=== PATIENT | female | born 1945 | race African-American/Black ===

== ENCOUNTER 2017-02-08 09:50 | Inpatient (IN) | payer MEDICARE, OTHER ==
[~2017-02-08] VITALS: Ht 172.7 cm; Wt 74.4 kg
[2017-02-08] VITALS (18 sets, daily range): BP systolic 110–146; BP diastolic 42–80
[~2017-02-08 09:50] MED LIST: ALEN70TA3 PO; AMIT10TA PO; ASPI325T4 PO; BUDE10.22 IH; CALC500T PO; CARV12.52 PO; CARV25TA PO; CLOP75TA PO; CLOP75TA27 PO; CRESTOR10 MG PO; CRESTOR40 MG PO; DICL100G7 TP; DULO20CA PO; ESTR30CR VG; HYDR-2666 PO; HYDR-2678 PO; LANS30CA17 PO; LISI5TAB PO; METF500T PO; NIAC500T PO; OXYC10TA PO; PRAS10TA9 PO; PROAIR HFA8.5 GM IH; RANI150T2 PO
[2017-02-08] MEDS ORDERED: HEPARIN for IV BOLUS 10,000 UNIT/10 ML VIAL. ONE ×2 (09:57→10:18)
[2017-02-08] MEDS ORDERED: LIDOCAINE 2% 20 ML VIAL. ONE (09:58)
[2017-02-08] MEDS ORDERED: IODIXANOL 320 MG/ML 100 ML VIAL. ONE (09:59)
[2017-02-08] MEDS ORDERED: HEPARIN for IV BOLUS 10,000 UNIT/10 ML VIAL. IV PRN (10:00)
[2017-02-08] MEDS ORDERED: ONDANSETRON PF 4 MG/2 ML VIAL. IV PRN (10:00)
[2017-02-08] MEDS ORDERED: HEPARIN for IV BOLUS 10,000 UNIT/10 ML VIAL. IV ONE ×2 (10:00→10:15)
[2017-02-08] MEDS ORDERED: ACETAMINOPHEN 325 MG TABLET. PO PRN (10:00)
[2017-02-08] MEDS ORDERED: HEPARIN 25,000UTS/500ML PREMIX 500 ML IV PRN (10:00)
[2017-02-08] MEDS ORDERED: fentaNYL PF VIAL 100 MCG/2 ML VIAL ONE (10:05)
[2017-02-08] MEDS ORDERED: MIDAZOLAM HCL/PF 2 MG/2 ML VIAL. ONE (10:05)
[2017-02-08] MEDS ORDERED: LIDOCAINE 2% 20 ML VIAL. IJ ONE (10:15)
[2017-02-08] MEDS ORDERED: fentaNYL PF VIAL 100 MCG/2 ML VIAL IV ONE (10:15)
[2017-02-08] MEDS ORDERED: IODIXANOL 320 MG/ML 100 ML VIAL. IV ONE (10:15)
[2017-02-08] MEDS ORDERED: TIROFIBAN 5MG -0.9% NS 0 ML IV ONE (10:15)
[2017-02-08] MEDS ORDERED: TIROFIBAN 12.5MG -0.9% NS 250 ML IV PRN ×2 (10:15→11:30)
[2017-02-08] MEDS ORDERED: MIDAZOLAM HCL/PF 2 MG/2 ML VIAL. IV ONE (10:15)
[2017-02-08 10:17] LABS: BASO # 0.1 x10^3/uL (0.0-0.2); BASO % 2 % (0-3); EOS % 3 % (0-3); HEMATOCRIT 28.3 % (36.0-47.0); HEMOGLOBIN 9.6 g/dL (12.0-15.5); LYMPH # 1.9 x10^3/uL (1.0-4.8); LYMPH % 38 % (24-48); MEAN CORPUSCULAR HEMOGLOBIN 29 pg (25-35); MEAN CORPUSCULAR HGB CONC 34 g/dL (31-37); MEAN CORPUSCULAR VOLUME 87 fL (79-100); MONO % 13 % (0-9); NEUT % 45 % (31-73); PLATELET COUNT 362 x10^3/uL (140-400); RED BLOOD COUNT 3.26 x10^6/uL (3.50-5.40); RED CELL DISTRIBUTION WIDTH 15.2 % (11.5-14.5); WHITE BLOOD COUNT 5.2 x10^3/uL (4.0-11.0)
--- NOTE | 2017-02-08 10:17 | ACF ---
Admission Forms Criteria MYOCARDIAL INFARCTION Clinical Indications for Admission to Inpatient Care (Place 'X' for any and all applicable criteria): Admission is indicated for 1 or more of the following (1)(2)(3)(4): [X]I. Acute NJ [ ]II. Contraindications and/or Inappropriate clinical situations for Observational Care in patients with Myocardial Infarction, when ANY ONE of the following is required: [ ]a) Patient with High risk of cardiac embolism (e.g, patients with previous cardiac embolism, LVEF < 40%, age >75 and patients with prosthetic valve) 18 [ ]b) Patient with Moderate risk including DM patient, CAD and patient aged 65-75 18 [ ]c) Patient with any change in cardiac biomarker especially troponin should be managed as high risk in an inpatient setting 19 [ ]d) Physician judgement irrespective of ECG and other diagnostic findings 20 [ ]III.General contraindications and/or Inappropriate clinical situations for Observational Care in patients with Myocardial Infarction, when ANY ONE of the following is required: [ ]a) Prediction of prolongation of LOS based on ANY ONE of the following may be considered as a contraindication for observational care 2, 3, 4, 5, 6, 7, 8, 9, 10, 11 [ ]i) Age > 65 yrs. [ ]ii) Patient arriving by ambulance [ ]iii) Patient with high acuity [ ]iv) Patient requiring vital sign monitoring [ ]v) Patient on IV medication [ ]b) Systolic blood pressures greater than or equal to 180mmHg 3,12 [ ]c) Patient with altered mental status including delirium and other alteration of consciousness, (3) [ ]d) Patient whose discharge disposition will be to a fdc home or rehabilitation home should not be managed in Emergency Department Observation Unit. CMS rule requires 3 days hospital stay before such placement. 3,13 [ ]e) Patient with failure to thrive due to broad array of etiologies 3 ,16,17 [ ]f) Inability to ambulate 3,14 Extended stay beyond goal length of stay may be needed for (1)(18)(20)(24)(25): [ ]a) Hemodynamic instability, persisting symptoms after intensive medical management, or recurring severe, prolonged symptoms [ ]b) Intravascular procedural complications such as acute vessel closure, stent thrombosis, stent malposition, or vessel dissection (26)(27)(28) [ ]c) Extravascular procedural complications such as retroperitoneal hematoma , pericardial effusion, or cardiac tamponade [ ]d) Entry site complications causing bleeding, hematoma or distal ischemia and requiring ongoing monitoring, surgical repair or surgical thrombectomy. Dangerous arrhythmia [ ]e) Complicated percutaneous coronary intervention (e.g., unsuccessful percutaneous coronary intervention or percutaneous coronary intervention of non- [place] vessel) [ ]f) Urgent or emergent surgery for complications of NJ (e.g., ventricular rupture, valvular insufficiency) [ ]g) Surgical revascularization via coronary artery bypass graft [ ]h) Heart failure (e.g., pulmonary edema) [ ]i) Unstable pulmonary comorbidities, including COPD or pneumonia (31) [ ]j) Acute renal failure The original [employer] content created by [employer] has been revised. The portions of the content which have been revised are identified through the use of italic text or in bold, and [facility] [employer] has neither reviewed nor approved the modified material. All other unmodified content is copyright [facility] [employer] Please see references footnoted in the original [facility] [employer] edition 2016 Admission Criteria Met?: Yes MATT REVELES February 08, 2017 10:17
[2017-02-08] MEDS ORDERED: TIROFIBAN 5MG -0.9% NS 100 ML IV ONE (10:18)
[2017-02-08 10:23] LABS: CALCIUM 8.6 mg/dL (8.5-10.1); CREATININE 0.8 mg/dL (0.6-1.0); GFR 86.1; POTASSIUM 3.3 mmol/L (3.5-5.1)
[2017-02-08 10:28] LABS: ALBUMIN 3.1 g/dL (3.4-5.0); ALBUMIN/GLOBULIN RATIO 0.8 (1.0-1.7); TOTAL BILIRUBIN 0.3 mg/dL (0.2-1.0); TOTAL PROTEIN 6.9 g/dL (6.4-8.2)
[2017-02-08 10:30] LABS: INR 1.1 (0.8-1.1); PROTHROMBIN TIME PATIENT 13.6 SEC (11.7-14.0)
[2017-02-08] MEDS ORDERED: CONTRAST GIVEN MC PRN (10:45)
--- NOTE | 2017-02-08 10:53 | EKG ---
[facility] [address] [place] [address] Test Date: 2017-02-08 Test Time: 09:50:51 Pat Name: PATT GARCIA Department: Room: [facility] 1 Gender: F [place] Supervisor: : 1945 Requested By: YELITZA GRAHAM Order Number: [id number] Reading MD: Roe Ruiz Measurements Intervals [place] Rate: 83 P: 52 AR: 164 QRS: 17 QRSD: 94 T: 26 QT: 384 QTc: 452 Interpretive Statements SINUS RHYTHM Electronically Signed On 02-15-2017 8:54:30 CDT by Roe Ruiz
[2017-02-08] MEDS ORDERED: PRASUGREL 10 MG TABLET. ONE (11:13)
[2017-02-08] MEDS ORDERED: PRASUGREL 10 MG TABLET. PO SCH (11:15)
[2017-02-08] MEDS ORDERED: ASPIRIN CHEWABLE 81 MG TABLET. PO ONE (11:15)
[2017-02-08] MEDS ORDERED: 0.9 % SODIUM CHLORIDE 10 ML DISP.SYRIN. IV PRN (11:30)
[2017-02-08] MEDS ORDERED: NITROGLYCERIN SUBLINGUAL 0.4 MG BOTTLE OF 25. SL PRN (11:30)
[2017-02-08] MEDS ORDERED: ATROPINE 0.5 MG/5 ML DISP.SYRIN. IV PRN (11:30)
[2017-02-08] MEDS ORDERED: fentaNYL PF VIAL 100 MCG/2 ML VIAL IV PRN ×2 (11:30)
[2017-02-08] MEDS ORDERED: LIDOCAINE 2% 100 MG/5 ML SYRINGE. IV PRN (11:30)
[2017-02-08] MEDS ORDERED: AMIODARONE 150 MG in IV DEXTROSE 5% 100 ML IV PRN (11:30)
[2017-02-08] MEDS ORDERED: PRASUGREL 10 MG TABLET. PO ONE (11:30)
--- NOTE | 2017-02-08 11:38 | PDOC4 ---
Operative Note Operative Note Brief cath note STEMI. Occluded mid LAD, no other significant lesions. 2.75 x 38 drug coated stent placed. 0% residual. Post STEMI, PCI protocol. Discussed with the patient and her family. Full report to follow. BEVERLY GROVE MD February 08, 2017 11:38
--- NOTE | 2017-02-08 11:58 | PHYS DOC ---
Past Medical History Past Medical History: Arthritis, Diabetes-Type II, High Cholesterol, Hypertension, [place] Additional Past Medical Histor: osteoporosis Past Surgical History: Cholecystectomy, Other Additional Past Surgical Histo: cardiac stents 2004 & 2007 Alcohol Use: Occasionally Drug Use: None Adult General Chief Complaint Chief Complaint: CHEST PAIN HPI HPI Patient is a 71 year old female who presents with chest pain. The patient reports onset of substernal chest pressure about 90 minutes prior to arrival while at rest. She took nitro x 2 at home & EMS gave aspirin en route. She reports history of prior heart catheterization with cardiac stents. Her PCP is Dr. 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 History was limited by time as she was taken emergently to the [facility]. Review of Systems Review of Systems Constitutional: Denies fever or chills Eyes: Denies change in visual acuity HENT: Denies nasal congestion or sore throat Respiratory: Denies cough or shortness of breath Cardiovascular: Reports chest pain, denies edema GI: Denies abdominal pain, nausea, vomiting, bloody stools or diarrhea Musculoskeletal: Denies back pain or joint pain Integument: Denies rash or skin lesions Neurologic: Denies headache, focal weakness or sensory changes Current Medications Current Medications Current Medications Medications (Trade) Dose Ordered Sig/Amaury Start Time Stop Time Status Last Admin Dose Admin Acetaminophen (Tylenol) 650 mg PRN Q6HRS PRN 02/08/17 11:30 Amiodarone HCl 150 mg/Dextrose 103 ml @ 10 mls/min 1X PRN PRN 02/08/17 11:30 Aspirin (Children'S Aspirin) 81 mg 1X ONCE 02/08/17 11:15 02/08/17 11:16 DC 02/08/17 11:15 81 MG Aspirin (Ecotrin) 81 mg [id number] 02/09/17 08:00 Atorvastatin Calcium (Lipitor) 20 mg QHS 02/08/17 21:00 Atropine Sulfate 0.5 mg PRN 1X PRN 02/08/17 11:30 Fentanyl Citrate (Fentanyl 2ml Vial) 50 mcg PRN Q1HR PRN 02/08/17 11:30 Heparin Sodium (Porcine) (Heparin Sodium) 2,000 unit 1X ONCE 02/08/17 10:15 02/08/17 10:39 DC 02/08/17 11:15 2,000 UNIT Heparin Sodium/ Dextrose 500 ml @ 0 mls/hr CONT PRN 02/08/17 10:00 Heparin Sodium/ Sodium Chloride 500 ml @ As Directed STK-MED ONCE 02/08/17 11:02 02/08/17 11:03 DC Info (Do NOT chart on this entry -- for MONITORING) 1 each PRN DAILY PRN 02/08/17 10:45 02/10/17 10:44 Iodixanol (Visipaque 320) 100 ml 1X ONCE 02/08/17 10:15 02/08/17 10:39 DC 02/08/17 10:53 180 ML Lidocaine HCl (Lidocaine HCl 2% Abboject) 100 mg 1X PRN PRN 02/08/17 11:30 Lisinopril (Prinivil) 5 mg DAILY 02/08/17 13:00 Metoprolol Tartrate (Lopressor) 12.5 mg BID 02/08/17 21:00 Midazolam HCl (Versed) 2 mg 1X ONCE 02/08/17 10:15 02/08/17 10:39 DC 02/08/17 10:53 1 MG Morphine Sulfate 2 mg PRN Q2HR PRN 02/08/17 10:00 02/09/17 09:59 Nitroglycerin (Nitrostat) 0.4 mg PRN Q5MIN PRN 02/08/17 11:30 Ondansetron HCl (Zofran) 4 mg PRN Q8HRS PRN 02/08/17 10:00 02/09/17 09:59 Prasugrel (Effient) 60 mg 1X ONCE 02/08/17 11:30 02/08/17 11:35 DC 02/08/17 11:30 60 MG Sodium Chloride 1,000 ml @ 50 mls/hr Q20H 02/08/17 11:28 Sodium Chloride (Normal Saline Flush) 3 ml QSHIFT PRN 02/08/17 11:30 Tirofiban/Sodium Chloride 250 ml @ 0 mls/hr CONT PRN 02/08/17 11:30 02/08/17 11:40 DC Allergies Allergies Allergies Coded Allergies Type Severity Reaction Last Updated Verified Penicillins Allergy Intermediate Hives 01/28/15 Yes Physical Exam Physical Exam Constitutional: Well developed, well nourished, acutely distressed & clutching her chest, non-toxic appearance. HENT: Normocephalic, atraumatic, bilateral external ears normal, oropharynx moist, nose normal. Eyes: conjunctiva normal, no discharge. Cardiovascular: RRR, no murmurs, no edema. Lungs & Thorax: LCTAB, no wheezing, no respiratory distress. Abdomen: soft, nontender, nondistended. Skin: Warm, dry, no erythema, no rash. Extremities: No tenderness, no edema. Neurologic: Alert and oriented X 3, no focal deficits noted. Psychologic: anxious Current Patient Data Vital Signs Vital Signs Date Time Temp Pulse Resp B/P (MAP) Pulse Ox O2 Delivery O2 Flow Rate FiO2 02/08/17 11:43 143/66 (91) 02/08/17 10:54 85 21 100 Nasal Cannula 2.0 Lab Values Laboratory Tests Test 02/08/17 08:50 02/08/17 09:55 02/08/17 10:42 White Blood Count 5.2 x10^3/uL (4.0-11.0) Red Blood Count 3.26 x10^6/uL (3.50-5.40) L Hemoglobin 9.6 g/dL (12.0-15.5) L Hematocrit 28.3 % (36.0-47.0) L Mean Corpuscular Volume 87 fL (79-100) Mean Corpuscular Hemoglobin 29 pg (25-35) Mean Corpuscular Hemoglobin Concent 34 g/dL (31-37) Red Cell Distribution Width 15.2 % (11.5-14.5) H Platelet Count 362 x10^3/uL (140-400) Neutrophils (%) (Auto) 45 % (31-73) Lymphocytes (%) (Auto) 38 % (24-48) Monocytes (%) (Auto) 13 % (0-9) H Eosinophils (%) (Auto) 3 % (0-3) Basophils (%) (Auto) 2 % (0-3) Neutrophils # (Auto) 2.3 x10^3uL (1.8-7.7) Lymphocytes # (Auto) 1.9 x10^3/uL (1.0-4.8) Monocytes # (Auto) 0.7 x10^3/uL (0.0-1.1) Eosinophils # (Auto) 0.1 x10^3/uL (0.0-0.7) Basophils # (Auto) 0.1 x10^3/uL (0.0-0.2) Prothrombin Time 13.6 SEC (11.7-14.0) Prothrombin Time INR 1.1 (0.8-1.1) PTT 31 SEC (24-38) Sodium Level 142 mmol/L (136-145) Potassium Level 3.3 mmol/L (3.5-5.1) L Chloride Level 103 mmol/L (98-107) Carbon Dioxide Level 27 mmol/L (21-32) Anion Gap 12 (6-14) Blood Urea Nitrogen 8 mg/dL (7-20) Creatinine 0.8 mg/dL (0.6-1.0) Estimated GFR (Cockcroft-Gault) 86.1 BUN/Creatinine Ratio 10 (6-20) Glucose Level 166 mg/dL (70-99) H Calcium Level 8.6 mg/dL (8.5-10.1) Total Bilirubin 0.3 mg/dL (0.2-1.0) Aspartate Amino Transferase (AST) 18 U/L (15-37) Alanine Aminotransferase (ALT) 12 U/L (14-59) L Alkaline Phosphatase 70 U/L (46-116) Troponin I Quantitative 0.030 ng/mL (0.000-0.055) AG-Syc-L-Type Natriuretic Peptide 2612 pg/mL (0-124) H Total Protein 6.9 g/dL (6.4-8.2) Albumin 3.1 g/dL (3.4-5.0) L Albumin/Globulin Ratio 0.8 (1.0-1.7) L POC Troponin I 0.02 ng/ml (<0.08) Activated Clotting Time 268 sec (92-181) Laboratory Tests 02/08/17 08:50 Laboratory Tests 02/08/17 08:50 EKG EKG interpreted by me: NSR rate 83, ST elevation in V2-V4, no reciprocal changes, normal intervals, no ectopy.[] Radiology/Procedures Radiology/Procedures [] Course & Med Decision Making Course & Med Decision Making Pertinent Labs and Imaging studies reviewed. (See chart for details) The patient presented with chest pain. EMS called STEMI en route. Patient met in the emergency department by Dr. Trejo. He took her emergently to the [facility] lab[facility]. She received aspirin by EMS, & heparin was given upon arrival. She was quickly transferred to the [facility] lab[facility] in stable condition. Dr. Brito agreed to admit to inpatient status, to the ICU. Critical care time: 35 minutes Dragon Disclaimer Dragon Disclaimer This electronic medical record was generated, in whole or in part, using a voice recognition dictation system. Departure Departure Impression: Primary Impression: STEMI (ST elevation myocardial infarction) Disposition: 09 ADMITTED INPATIENT Admitting Physician: Junior Brito Condition: CRITICAL YELITZA GRAHAM MD February 08, 2017 11:58
--- NOTE | 2017-02-08 13:15 | CARD ---
APPROVED REPORT Procedures Left heart catheterization Selective coronary angiogram Drug-eluting stent placed to a proximal LAD occlusion. The patient is a 71-year-old female who presented to the emergency room with 2 hours of chest pain. E KG suggested an anterior wall ST elevated myocardial infarction. Patient had previous stents placed to the LAD and the right coronary artery. Aspirin, heparin and morphine were administered. Cardiac ca theterization and possible intervention was recommended. Risks and benefits were discussed. The patie nt gave consent to proceed with testing. After informed consent was obtained the patient was brought to the heart catheterization lab. The are a of the right femoral artery was prepared in the usual manner with Betadine, sterile draping and loc al anesthetic. An 18-gauge needle was used to enter the right femoral artery, a wire placed and a 6 F rench sheath placed over the wire. Initially with the use of a J-wire, a 6 Greek Jeremías diagnostic catheter was advanced the ascending aorta. It was then used to engage the right coronary artery and sequential injections in various views were obtained. A 6 Greek XB 3.5 guide was then advanced the a scending aorta. It was used to engage the left coronary system. Sequential injections in various view s were obtained. Imaging showed a proximal LAD occlusion. We proceeded to revascularize the lesion. Heparin and Aggrastat were given as per protocol. A PT choice wire was used to cross the lesion. A 2. 5 x 20 mm trek balloon was used for 3 inflations at 8 flavia for 20 seconds. This restored flow. The are a was diffusely diseased with previous stent placement. Therefore a 2.75 x 36 Xience alpine drug-elut ing stent was deployed with one inflation at 16 flavia for 16 seconds. Residual lesion was 0%. This syst em was then removed. A pigtail catheter was advanced the ascending aorta and then the left ventricle. Pressures were obtained. No left ventriculogram was performed secondary to contrast load. Pullback p ressures were measured. The catheter was removed from the patient. ACT time was too elevated for disc ontinuation of the sheath and therefore it was sutured into place. The patient was moved to the [facility] pain-free. Findings. Hemodynamics. Left ventricular pressure of 136/28, aortic root pressure 134/68. Coronaries. Left main. The left main was a normal-size vessel with no lesions. Left anterior descending. The LAD was occluded in its proximal portion. There was diffuse disease in the area of the previously placed stent. Left circumflex. The left circumflex had mild disease of 20% in an obtuse marginal 1 branch. Right coronary artery. Right coronary had proximal disease at 20-25%. A distal stent was widely paten t. Percutaneous coronary intervention. A drug-eluting stent placed to the LAD as outlined above decreased a total occlusion to 0%. <Conclusion> ST elevated myocardial infarction secondary to an occluded left anterior descending vessel. Successful drug-eluting stent placement to the occluded LAD with a 0% residual lesion. Mild disease in the left circumflex. Mild disease in the right coronary artery with a distal widely patent stent. Elevated left ventricular end-diastolic pressure.
[2017-02-08] MEDS ORDERED: OXYC10TA PO (13:30)
[2017-02-08] MEDS ORDERED: ATOR80TA72 PO (13:30)
[2017-02-08] MEDS ORDERED: TIZA4TAB PO (13:30)
[2017-02-08] MEDS ORDERED: CARV6.25 PO (13:30)
[2017-02-08] MEDS ORDERED: DULO60CA6 PO (13:30)
[2017-02-08] MEDS ORDERED: PRAS10TA9 PO (13:30)
[2017-02-08] MEDS ORDERED: CELE100C PO (13:30)
[2017-02-08] MEDS ORDERED: OMEP20CA9 PO (13:30)
[2017-02-08] MEDS: LISINOPRIL 5 MG TABLET. PO SCH (13:52)
[2017-02-08] MEDS ORDERED: POTASSIUM CHLORIDE 20 MEQ TABLET.ER. PO ONE (14:30)
[2017-02-08] MEDS ORDERED: METO25TA9 PO (14:37)
[2017-02-08] MEDS ORDERED: RANI150C PO (14:37)
[2017-02-08] MEDS ORDERED: METF500T9 PO (14:37)
[2017-02-08] MEDS ORDERED: MAGNESIUM SULFATE 4GM 100 ML IV ONE (15:30)
[2017-02-08] MEDS: IV NORMAL SALINE 1000ML BAG 1,000 ML IV SCH (15:53)
--- NOTE | 2017-02-08 16:16 | PDOC2 ---
CONSULT Date of Consult Date of Consult DATE: 02/08/17 TIME: 16:12 Reason for Consult Reason for Consult: chest pain, possible STEMI Referring Physician Referring Physician: Dr. Brito Identification/Chief Complaint Chief Complaint chest pain Source Source: Patient History of Present Illness Reason for Visit: The patient is a 71-year-old female with a history of coronary artery disease and previous stents to the LAD and right coronary artery. She developed chest pain approximately 90 minutes ago. He then called paramedics. A possible ST elevated myocardial infarction was called by the ambulance service en route to the hospital. Patient was met in the emergency room. She continued to have chest discomfort. She was treated with aspirin and heparin and morphine. EKG showed anterior ST elevation suggestive of a ST elevated myocardial infarction. Past Medical History Cardiovascular: CAD, HTN, AR, Hyperlipidemia, Other Musculoskeletal: Osteoarthritis Endocrine: Diabetes Past Surgical History Past Surgical History: Cholecystectomy Family History Family History: Heart Disease Social History No ALCOHOL: none Drugs: None Lives: with Family Domestic Violence: Neg Current Medications Current Medications Current Medications Heparin Sodium (Porcine) (Heparin Sodium) 10,000 unit STK-MED ONCE .ROUTE ; Start 02/08/17 at 09:57; Stop 02/08/17 at 09:58; Status DC Lidocaine HCl 20 ml STK-MED ONCE .ROUTE ; Start 02/08/17 at 09:58; Stop 02/08/17 at 09:59; Status DC Heparin Sodium/ Sodium Chloride 1,000 ml @ As Directed STK-MED ONCE .ROUTE ; Start 02/08/17 at 09:58; Stop 02/08/17 at 09:59; Status DC Iodixanol (Visipaque 320) 100 ml STK-MED ONCE .ROUTE ; Start 02/08/17 at 09:59; Stop 02/08/17 at 10:00; Status DC Heparin Sodium (Porcine) (Heparin Sodium) 4,000 unit 1X ONCE IV Last administered on 02/08/17t 10:00; Start 02/08/17 at 10:00; Stop 02/08/17 at 10:05; Status DC Heparin Sodium/ Dextrose 500 ml @ 0 mls/hr CONT PRN IV SEE I/O RECORD; Start at 10:00 Heparin Sodium (Porcine) (Heparin Sodium) 1,750 unit PRN Q6HRS PRN IV FOR UFH LEVEL LESS THAN 0.2; Start 02/08/17 at 10:00 Ondansetron HCl (Zofran) 4 mg PRN Q8HRS PRN IV NAUSEA/VOMITING; Start 02/08/17 at 10:00; Stop 02/09/17 at 09:59 Morphine Sulfate 2 mg PRN Q2HR PRN IV PAIN; Start 02/08/17 at 10:00; Stop at 09:59 Acetaminophen (Tylenol) 650 mg PRN Q4HRS PRN PO FEVER; Start 02/08/17 at 10:00; Stop 02/08/17 at 11:39; Status DC Midazolam HCl (Versed) 2 mg STK-MED ONCE .ROUTE ; Start 02/08/17 at 10:05; Stop 02/08/17 at 10:06; Status DC Fentanyl Citrate (Fentanyl 2ml Vial) 100 mcg STK-MED ONCE .ROUTE ; Start at 10:05; Stop 02/08/17 at 10:06; Status DC Tirofiban/Sodium Chloride 100 ml @ As Directed STK-MED ONCE IV ; Start 02/08/17 at 10:18; Stop 02/08/17 at 10:19; Status DC Heparin Sodium (Porcine) (Heparin Sodium) 10,000 unit STK-MED ONCE .ROUTE ; Start 02/08/17 at 10:18; Stop 02/08/17 at 10:19; Status DC Heparin Sodium (Porcine) (Heparin Sodium) 2,000 unit 1X ONCE IV Last administered on 02/08/17 11:15; Start 02/08/17 at 10:15; Stop 02/08/17 at 10:39; Status DC Tirofiban/Sodium Chloride 100 ml @ 0 mls/hr 1X ONCE IV Last administered on 10:54; Start 02/08/17 at 10:15; Stop 02/08/17 at 10:39; Status DC Tirofiban/Sodium Chloride 250 ml @ 0 mls/hr CONT PRN IV PER PROTOCOL Last administered on 02/08/17 13:46; Start 02/08/17 at 10:15 Fentanyl Citrate (Fentanyl 2ml Vial) 100 mcg 1X ONCE IV Last administered on 10:52; Start 02/08/17 at 10:15; Stop 02/08/17 at 10:39; Status DC Midazolam HCl (Versed) 2 mg 1X ONCE IV Last administered on 02/08/17 10:53; Start 02/08/17 at 10:15; Stop 02/08/17 at 10:39; Status DC Lidocaine HCl 20 ml 1X ONCE IJ Last administered on 02/08/17 10:51; Start 02/08 at 10:15; Stop 02/08/17 at 10:39; Status DC Iodixanol (Visipaque 320) 100 ml 1X ONCE IV Last administered on 02/08/17 10: 53; Start 02/08/17 at 10:15; Stop 02/08/17 at 10:39; Status DC Heparin Sodium/ Sodium Chloride 1,000 unit 1X ONCE IV Last administered on 02/08 10:52; Start 02/08/17 at 10:15; Stop 02/08/17 at 10:39; Status DC Info (Do NOT chart on this entry -- for MONITORING) 1 each PRN DAILY PRN MC SEE COMMENTS; Start 02/08/17 at 10:45; Stop 02/10/17 at 10:44 Heparin Sodium/ Sodium Chloride 500 ml @ As Directed STK-MED ONCE .ROUTE ; Start 02/08/17 at 10:48; Stop 02/08/17 at 10:49; Status DC Heparin Sodium/ Sodium Chloride 500 ml @ As Directed STK-MED ONCE .ROUTE ; Start 02/08/17 at 11:02; Stop 02/08/17 at 11:03; Status DC Aspirin (Children'S Aspirin) 81 mg 1X ONCE PO Last administered on 02/08/17 11 :15; Start 02/08/17 at 11:15; Stop 02/08/17 at 11:16; Status DC Prasugrel (Effient) 60 mg STAT PO ; Start 02/08/17 at 11:15; Status Cancel Prasugrel (Effient) 10 mg STK-MED ONCE .ROUTE ; Start 02/08/17 at 11:13; Stop 02/08/17 at 11:14; Status DC Fentanyl Citrate (Fentanyl 2ml Vial) 25 mcg 1X PRN PRN IV Give prior to sheath removal; Start 02/08/17 at 11:30; Stop 02/09/17 at 11:29 Sodium Chloride (Normal Saline Flush) 3 ml QSHIFT PRN IV AFTER MEDS AND BLOOD DRAWS; Start 02/08/17 at 11:30 Sodium Chloride 1,000 ml @ 50 mls/hr Q20H IV Last administered on 02/08/17 15: 53; Start 02/08/17 at 11:28 Tirofiban/Sodium Chloride 250 ml @ 0 mls/hr CONT PRN IV PER PROTOCOL; Start 02/08/17 at 11:30; Stop 02/08/17 at 11:40; Status DC Aspirin (Ecotrin) 81 mg DAILYWBKFT PO ; Start 02/09/17 at 08:00 Prasugrel (Effient) 10 mg DAILYWBKFT PO ; Start 02/09/17 at 08:00 Metoprolol Tartrate (Lopressor) 12.5 mg BID PO ; Start 02/08/17 at 21:00 Lisinopril (Prinivil) 5 mg DAILY PO Last administered on 02/08/17 13:52; Start 02/08/17 at 13:00 Atorvastatin Calcium (Lipitor) 20 mg QHS PO ; Start 02/08/17 at 21:00 Acetaminophen (Tylenol) 650 mg PRN Q6HRS PRN PO MILD PAIN / TEMP; Start at 11:30 Fentanyl Citrate (Fentanyl 2ml Vial) 50 mcg PRN Q1HR PRN IV MODERATE OR SEVERE PAIN; Start 02/08/17 at 11:30 Nitroglycerin (Nitrostat) 0.4 mg PRN Q5MIN PRN SL CHEST PAIN; Start 02/08/17 at 11:30 Amiodarone HCl 150 mg/Dextrose 103 ml @ 10 mls/min 1X PRN PRN IV FOR VENTRICULAR TACHYCARDIA; Start 02/08/17 at 11:30 Lidocaine HCl (Lidocaine HCl 2% Abboject) 100 mg 1X PRN PRN IV FOR VENTRICULAR TACHYCARDIA; Start 02/08/17 at 11:30 Atropine Sulfate 0.5 mg PRN 1X PRN IV BRADYCARDIA; Start 02/08/17 at 11:30 Prasugrel (Effient) 60 mg 1X ONCE PO Last administered on 02/08/17 11:30; Start 02/08/17 at 11:30; Stop 02/08/17 at 11:35; Status DC Potassium Chloride (Klor-Con) 40 meq 1X ONCE PO Last administered on 02/08/17 15:45; Start 02/08/17 at 14:30; Stop 02/08/17 at 14:31; Status DC Magnesium Sulfate/ Dextrose 100 ml @ 25 mls/hr 1X ONCE IV Last administered on 02/08/17t 15:45; Start 02/08/17 at 15:30; Stop 02/08/17 at 19:29 Active Scripts Active Reported Metformin Hcl Er (Metformin Hcl) 500 Mg Tab.er.24h 500 Mg PO HS Metoprolol Succinate ( Xl ) (Metoprolol Succinate) 25 Mg Tab.er.24h 1 Tab PO DAILY Ranitidine Hcl 150 Mg Capsule 150 Mg PO BID Cymbalta (Duloxetine Hcl) 60 Mg Capsule.dr 1 Cap PO DAILY Atorvastatin Calcium 80 Mg Tablet 90 Mg PO DAILY Oxycodone Hcl 10 Mg Tablet 2.5 Mg PO PRN Symbicort 80-4.5 Mcg Inhaler (Budesonide/Formoterol Fumarate) 10.2 Gm Hfa.aer.ad 2 Puff IH BID LAST DOSE GIVEN: DATE: 09/13 TIME: 9 am NEXT DOSE DUE: DATE: 09/13 TIME: 9 pm Premarin (Estrogens, Conjugated) 30 Gm Cream.appl 1 Stephanie VG DAILY Resume at home as ordered by doctor. Proair Hfa Inhaler (Albuterol Sulfate) 8.5 Gm Hfa.aer.ad 2 Puff IH PRN Q4-6HRS Not given this hospitalization. May resume at home as ordered by doctor. Aspirin 325 Mg Tablet 1 Tab PO DAILY LAST DOSE GIVEN: DATE: 09/13 TIME: 9 am NEXT DOSE DUE: DATE: 09/14 TIME: 9 am Prinivil (Lisinopril) 5 Mg Tablet 1 Tab PO DAILY LAST DOSE GIVEN: DATE: 09/13 TIME: 9 am NEXT DOSE DUE: DATE: 09/14 TIME: 9 am Amitriptyline Hcl 10 Mg Tablet 1 Tab PO HS LAST DOSE GIVEN: DATE: 09/12 TIME: 9 pm NEXT DOSE DUE: DATE: 09/13 TIME: 9 pm Allergies Allergies: Coded Allergies: Penicillins (Verified Allergy, Intermediate, Hives, 01/28/15) ROS Respiratory: YES: Shortness of breath Cardiovascular: yes Chest Pain Physical Exam General: moderate distress HEENT: Atraumatic Lungs: Clear to auscultation Heart: Regular rate Abdomen: Normal bowel sounds Extremities: No clubbing Vitals VITALS Vital Signs Date Time Temp Pulse Resp B/P (MAP) Pulse Ox O2 Delivery O2 Flow Rate FiO2 02/08/17 13:52 80 117/41 02/08/17 12:00 Nasal Cannula 2.0 02/08/17 10:54 21 100 Labs Labs Laboratory Tests Test 02/08/17 08:50 02/08/17 09:55 02/08/17 10:42 02/08/17 15:15 White Blood Count 5.2 x10^3/uL (4.0-11.0) Red Blood Count 3.26 x10^6/uL (3.50-5.40) Hemoglobin 9.6 g/dL (12.0-15.5) Hematocrit 28.3 % (36.0-47.0) Mean Corpuscular Volume 87 fL (79-100) Mean Corpuscular Hemoglobin 29 pg (25-35) Mean Corpuscular Hemoglobin Concent 34 g/dL (31-37) Red Cell Distribution Width 15.2 % (11.5-14.5) Platelet Count 362 x10^3/uL (140-400) Neutrophils (%) (Auto) 45 % (31-73) Lymphocytes (%) (Auto) 38 % (24-48) Monocytes (%) (Auto) 13 % (0-9) Eosinophils (%) (Auto) 3 % (0-3) Basophils (%) (Auto) 2 % (0-3) Neutrophils # (Auto) 2.3 x10^3uL (1.8-7.7) Lymphocytes # (Auto) 1.9 x10^3/uL (1.0-4.8) Monocytes # (Auto) 0.7 x10^3/uL (0.0-1.1) Eosinophils # (Auto) 0.1 x10^3/uL (0.0-0.7) Basophils # (Auto) 0.1 x10^3/uL (0.0-0.2) Prothrombin Time 13.6 SEC (11.7-14.0) Prothromb Time International Ratio 1.1 (0.8-1.1) Activated Partial Thromboplast Time 31 SEC (24-38) Sodium Level 142 mmol/L (136-145) Potassium Level 3.3 mmol/L (3.5-5.1) Chloride Level 103 mmol/L (98-107) Carbon Dioxide Level 27 mmol/L (21-32) Anion Gap 12 (6-14) Blood Urea Nitrogen 8 mg/dL (7-20) Creatinine 0.8 mg/dL (0.6-1.0) Estimated GFR (Cockcroft-Gault) 86.1 BUN/Creatinine Ratio 10 (6-20) Glucose Level 166 mg/dL (70-99) Calcium Level 8.6 mg/dL (8.5-10.1) Magnesium Level 1.3 mg/dL (1.8-2.4) Total Bilirubin 0.3 mg/dL (0.2-1.0) Aspartate Amino Transf (AST/SGOT) 18 U/L (15-37) Alanine Aminotransferase (ALT/SGPT) 12 U/L (14-59) Alkaline Phosphatase 70 U/L (46-116) Troponin I Quantitative 0.030 ng/mL (0.000-0.055) 16.896 ng/mL (0.000-0.055) VB-Pwy-U-Type Natriuretic Peptide 2612 pg/mL (0-124) Total Protein 6.9 g/dL (6.4-8.2) Albumin 3.1 g/dL (3.4-5.0) Albumin/Globulin Ratio 0.8 (1.0-1.7) Bedside Troponin I 0.02 ng/ml (<0.08) Activated Clotting Time 268 sec (92-181) Laboratory Tests Test 02/08/17 08:50 02/08/17 09:55 02/08/17 10:42 02/08/17 15:15 White Blood Count 5.2 x10^3/uL (4.0-11.0) Red Blood Count 3.26 x10^6/uL (3.50-5.40) Hemoglobin 9.6 g/dL (12.0-15.5) Hematocrit 28.3 % (36.0-47.0) Mean Corpuscular Volume 87 fL (79-100) Mean Corpuscular Hemoglobin 29 pg (25-35) Mean Corpuscular Hemoglobin Concent 34 g/dL (31-37) Red Cell Distribution Width 15.2 % (11.5-14.5) Platelet Count 362 x10^3/uL (140-400) Neutrophils (%) (Auto) 45 % (31-73) Lymphocytes (%) (Auto) 38 % (24-48) Monocytes (%) (Auto) 13 % (0-9) Eosinophils (%) (Auto) 3 % (0-3) Basophils (%) (Auto) 2 % (0-3) Neutrophils # (Auto) 2.3 x10^3uL (1.8-7.7) Lymphocytes # (Auto) 1.9 x10^3/uL (1.0-4.8) Monocytes # (Auto) 0.7 x10^3/uL (0.0-1.1) Eosinophils # (Auto) 0.1 x10^3/uL (0.0-0.7) Basophils # (Auto) 0.1 x10^3/uL (0.0-0.2) Prothrombin Time 13.6 SEC (11.7-14.0) Prothromb Time International Ratio 1.1 (0.8-1.1) Activated Partial Thromboplast Time 31 SEC (24-38) Sodium Level 142 mmol/L (136-145) Potassium Level 3.3 mmol/L (3.5-5.1) Chloride Level 103 mmol/L (98-107) Carbon Dioxide Level 27 mmol/L (21-32) Anion Gap 12 (6-14) Blood Urea Nitrogen 8 mg/dL (7-20) Creatinine 0.8 mg/dL (0.6-1.0) Estimated GFR (Cockcroft-Gault) 86.1 BUN/Creatinine Ratio 10 (6-20) Glucose Level 166 mg/dL (70-99) Calcium Level 8.6 mg/dL (8.5-10.1) Magnesium Level 1.3 mg/dL (1.8-2.4) Total Bilirubin 0.3 mg/dL (0.2-1.0) Aspartate Amino Transf (AST/SGOT) 18 U/L (15-37) Alanine Aminotransferase (ALT/SGPT) 12 U/L (14-59) Alkaline Phosphatase 70 U/L (46-116) Troponin I Quantitative 0.030 ng/mL (0.000-0.055) 16.896 ng/mL (0.000-0.055) SI-Fmp-G-Type Natriuretic Peptide 2612 pg/mL (0-124) Total Protein 6.9 g/dL (6.4-8.2) Albumin 3.1 g/dL (3.4-5.0) Albumin/Globulin Ratio 0.8 (1.0-1.7) Bedside Troponin I 0.02 ng/ml (<0.08) Activated Clotting Time 268 sec (92-181) Assessment/Plan Assessment/Plan 1. Chest pain consistent with probable ST elevated myocardial infarction. Patient was treated with aspirin, heparin and morphine in the emergency room. Her EKG is consistent with a ST elevated myocardial infarction. She has a history of coronary artery disease and previous stent placement. Cardiac catheterization and possible revascularization were recommended. Risks and benefits were discussed with the patient. She has agreed to proceed. She will be brought emergently to the heart catheterization lab. 2. Hyperlipidemia. We will check a lipid panel resume statin medications. 3. Hypertension. We'll resume baseline medications. Thank you for allowing us to participate in the care of your patient. BEVERLY GROVE MD February 08, 2017 16:16
--- NOTE | 2017-02-08 17:17 | PDOC ---
Provider Note Provider Note Seen in ICU,H&P dictated. #[id number] ANNELIESE ELLIS MD February 08, 2017 17:17
[2017-02-08] MEDS ORDERED: DEXTROSE 50% 25 GM / 50ML DISP.SYRIN. IV PRN (17:30)
[2017-02-08] MEDS ORDERED: ALBUTEROL SULFATE 2.5 MG/3 ML NEBU. NEB PRN (17:30)
[2017-02-08] MEDS ORDERED: NON FORMULARY ITEM (Albuterol Sulfate (Proair Hfa Inhaler) 2 PUFF) IH SCH (17:30)
--- NOTE | 2017-02-08 19:05 | RAD ---
PROCEDURE AP portable chest x-ray HISTORY Myocardial infarction, COPD COMPARISON Chest x-ray December 15, 2015 FINDINGS Heart size stable. Mediastinal silhouette is unremarkable. No pneumothorax, pulmonary opacities or pleural effusions. Mild coarse interstitial markings appear to be mildly progressed and there may be mild thickening of the minor fissure which is also new. Left shoulder arthroplasty. IMPRESSION Mild progression of diffuse coarsened pulmonary interstitial markings since the prior x-ray from 1 year ago, could be indicative of progressive interstitial lung disease or interstitial pulmonary edema superimposed upon chronic interstitial disease. Electronically signed by: Cayetano Villalpando MD (February 08, 2017 19:03:54)
--- NOTE | 2017-02-08 19:28 | HP ---
ADMIT DATE: 02/08/2017 LOCATION: ICU, Room 106. REASON FOR ADMISSION TO THE HOSPITAL: Chest pain. HISTORY OF PRESENT ILLNESS: This is a 61-year-old female, patient of Dr. Norman, with history of hypertension, hyperlipidemia, diabetes, and history of cardiac stents she had in 2004 and 2007. She was having chest pain, came to the Emergency Room this morning had elevated troponin and EKG shows ST elevation. The patient was taken to the labor representative, STEMI. Cardiac catheterization shows a LAD occlusion, had a stent placed and the patient was admitted to the ICU. PAST MEDICAL HISTORY: As mentioned above, history of diabetes, hypertension, hyperlipidemia, osteoporosis, and cardiac stents. PAST SURGICAL HISTORY: Gallbladder surgery, cardiac stents. ALLERGIES: PENICILLIN. MEDICATIONS AT HOME: Amitriptyline 10 mg daily, aspirin 325 daily, Premarin vaginal cream, lisinopril 5 mg daily, metformin 500 mg daily, metoprolol 25 mg daily, albuterol 2 puffs 4 times daily, atorvastatin 80 mg daily, Symbicort 80/4.5 two puffs twice a day, Cymbalta 60 mg daily, oxycodone 10 mg tablets 2.5 mg q. 6 hours, Zantac 150 mg twice a day. PERSONAL HISTORY: No history of smoking, alcohol, or drug abuse. FAMILY HISTORY: Positive for heart disease. REVIEW OF SYSTEMS: CARDIAC: Chest pain, shortness of breath this morning, much better this evening. GASTROINTESTINAL: No nausea. NEUROLOGICAL: No weakness. The rest of the 14-system was reviewed and negative. PHYSICAL EXAMINATION: GENERAL: The patient is comfortable, seen in the ICU. VITAL SIGNS: Temperature, at the time of admission, is 98, pulse 85, respirations 14, blood pressure 110/72, 98% on room air. HEENT: Head is atraumatic. Pupils equal. Oral cavity: Dentures. NECK: Supple. Thyroid not enlarged, JVD not elevated. CHEST: Symmetrical. CARDIOVASCULAR: S1, S2. No murmurs. LUNGS: Clear to auscultation. No wheezing. ABDOMEN: Soft, bowel sounds present, no mass palpable. EXTERNAL GENITALIA: No Hunter. RECTAL: Deferred. EXTREMITIES: No calf tenderness, no edema. The patient has a dressing over the right groin from the cardiac catheterization. AV pulses 1+ dorsal and posterior tibial. NEUROLOGIC: No focal deficits. Moving all extremities. LABORATORY DATA: Shows a white count of 5, hemoglobin 9.6, platelets 362. Electrolytes show sodium 142, potassium 3.3, chloride 103, bicarbonate 27, BUN 8, creatinine 0.8, glucose 166. LFTs were normal. FINAL IMPRESSION: 1. ST elevation myocardial infarction. 2. Cardiac Cath shows an occluded mid left anterior descending coronary artery. The patient had drug-coated stent placed and admitted to the ICU. 3. History of previous coronary artery disease, previous stents. 4. Hypertension. 5. Hyperlipidemia. 6. Diabetes. 7. Smoking addiction 8. Anemia of ch disease? PLAN: At this time, she is admitted to the ICU status post stent protocol, check lipase diet and see how the patient's condition improves. ANNELIESE ELLIS MD DR: CHESTER/cinthia JOB#: [id number] / [id number] LYNETTE
[2017-02-08] MEDS: ALBUTEROL SULFATE 2.5 MG/3 ML NEBU. NEB SCH ×2 (20:15→23:14)
[2017-02-08] MEDS: BUDESONIDE 0.5 MG/2 ML NEBU. NEB SCH (20:15)
[2017-02-08] MEDS: ATORVASTATIN CALCIUM 40 MG TABLET. PO SCH (20:41)
[2017-02-08] MEDS: AMITRIPTYLINE HCL 10 MG TABLET. PO SCH (20:41)
[2017-02-08] MEDS: MORPHINE SULFATE 2 MG/ML DISP.SYRIN. IV PRN (20:43)
[2017-02-08] MEDS ORDERED: NON FORMULARY ITEM (Budesonide/Formoterol Fumarate (Symbicort 80-4.5 Mcg Inhaler) 2 PUFF) IH SCH (21:00)
[2017-02-08] MEDS ORDERED: METOPROLOL TART IMMED RELEASE 25 MG TABLET. PO SCH (21:00)
[2017-02-08] MEDS ORDERED: ATORVASTATIN CALCIUM 20 MG TABLET PO SCH (21:00)
[2017-02-08] MEDS ORDERED: ATORVASTATIN CALCIUM 10 MG TABLET. PO SCH (21:00)
[2017-02-09] VITALS (15 sets, daily range): BP systolic 112–150; BP diastolic 62–79
[2017-02-09] MEDS: MORPHINE SULFATE 2 MG/ML DISP.SYRIN. IV PRN (00:11)
[2017-02-09 06:16] LABS: BASO # 0.1 x10^3/uL (0.0-0.2); BASO % 1 % (0-3); EOS % 2 % (0-3); HEMATOCRIT 29.8 % (36.0-47.0); HEMOGLOBIN 9.3 g/dL (12.0-15.5); LYMPH # 1.3 x10^3/uL (1.0-4.8); LYMPH % 21 % (24-48); MEAN CORPUSCULAR HEMOGLOBIN 28 pg (25-35); MEAN CORPUSCULAR HGB CONC 31 g/dL (31-37); MEAN CORPUSCULAR VOLUME 90 fL (79-100); MONO % 9 % (0-9); NEUT % 67 % (31-73); PLATELET COUNT 325 x10^3/uL (140-400); RED BLOOD COUNT 3.31 x10^6/uL (3.50-5.40); RED CELL DISTRIBUTION WIDTH 15.2 % (11.5-14.5); WHITE BLOOD COUNT 6.5 x10^3/uL (4.0-11.0)
[2017-02-09 06:31] LABS: CALCIUM 8.3 mg/dL (8.5-10.1); CREATININE 0.7 mg/dL (0.6-1.0); GFR 100.4; MAGNESIUM 2.1 mg/dL (1.8-2.4); POTASSIUM 4.6 mmol/L (3.5-5.1)
[2017-02-09 06:34] LABS: CHOLESTEROL/HDL RATIO 2.2
[2017-02-09] MEDS: BUDESONIDE 0.5 MG/2 ML NEBU. NEB SCH ×2 (06:40→19:35)
[2017-02-09] MEDS: ALBUTEROL SULFATE 2.5 MG/3 ML NEBU. NEB SCH ×4 (06:40→23:48)
[2017-02-09] MEDS: IV NORMAL SALINE 1000ML BAG 1,000 ML IV SCH (08:12)
[2017-02-09] MEDS: PRASUGREL 10 MG TABLET. PO SCH (08:13)
[2017-02-09] MEDS: LISINOPRIL 5 MG TABLET. PO SCH (08:13)
[2017-02-09] MEDS: DULoxetine HCL 30 MG CAPSULE.DR PO SCH (08:13)
[2017-02-09] MEDS: METOPROLOL SUCC 24HR ER 25 MG TAB.ER.24H. PO SCH (08:13)
[2017-02-09] MEDS: ASPIRIN ENTERIC COATED 81 MG TABLET.DR. PO SCH (08:13)
[2017-02-09] MEDS: INSULIN ASPART 300 UNITS/3 ML INSULN.PEN SQ SCH ×3 (08:14→17:00)
[2017-02-09] MEDS ORDERED: LISINOPRIL 5 MG TABLET. PO SCH (09:00)
[2017-02-09] MEDS ORDERED: NITR0.4T SL (09:33)
[2017-02-09] MEDS ORDERED: OMEP20CA9 PO (09:40)
--- NOTE | 2017-02-09 09:41 | PDOC ---
PROGRESS NOTES Subjective Subjective feels better ,no chest pain Objective Objective Vital Signs Date Time Temp Pulse Resp B/P (MAP) Pulse Ox O2 Delivery O2 Flow Rate FiO2 02/09/17 08:13 65 135/73 02/09/17 08:00 20 97 Nasal Cannula 2.0 02/09/17 07:00 98.4 98.4 Intake and Output 02/09/17 07:00 Intake Total 1785 ml Output Total 450 ml Balance 1335 ml Intake Oral 490 ml IV Total 1295 ml Output Urine Total 450 ml # Voids 2 Physical Exam Abdomen: Normal bowel sounds Heart: Regular rate Extremities: No clubbing General: moderate distress HEENT: Atraumatic Lungs: Clear to auscultation MUSCULOSKELETAL: No swelling Neuro: Normal speech Psych/Mental Status: Mental status NL Skin: No breakdown Diagnosis Problem List Problems Medical Problems: (1) STEMI (ST elevation myocardial infarction) Status: Acute Assessment Assessment Problems Medical Problems: (1) STEMI (ST elevation myocardial infarction) Status: Acute FINAL IMPRESSION: 1. ST elevation myocardial infarction. 2. Cardiac Cath shows an occluded mid left anterior descending coronary artery. The patient had drug-coated stent placed and admitted to the ICU. 3. History of previous coronary artery disease, previous stents. 4. Hypertension. 5. Hyperlipidemia. 6. Diabetes. 7.smoking addiction 8.Anemia? ch disease. PLAN: doing well after stent placement to LAD. cxr showed ?ILD. will do ct chest high resolution. smoking counseling done. anemia will do iron +vit levels. will check last time had colonoscopy?. At this time, she is admitted to the ICU status post stent protocol, Problems: Plan Plan of Care Problems Medical Problems: (1) STEMI (ST elevation myocardial infarction) Status: Acute Comment Review of Relevant I have reviewed the following items adry (where applicable) has been applied. Labs Laboratory Tests Test 02/08/17 09:55 02/08/17 10:42 02/08/17 12:50 02/08/17 15:15 Bedside Troponin I 0.02 ng/ml (<0.08) Activated Clotting Time 268 sec (92-181) Nasal Screen MRSA (PCR) Negative (Negative) Troponin I Quantitative 16.896 ng/mL (0.000-0.055) Test 02/08/17 17:49 02/08/17 21:05 02/08/17 21:32 02/09/17 05:20 Glucose (Fingerstick) 118 mg/dL (70-99) 116 mg/dL (70-99) Magnesium Level 2.5 mg/dL (1.8-2.4) 2.1 mg/dL (1.8-2.4) Troponin I Quantitative 34.384 ng/mL (0.000-0.055) White Blood Count 6.5 x10^3/uL (4.0-11.0) Red Blood Count 3.31 x10^6/uL (3.50-5.40) Hemoglobin 9.3 g/dL (12.0-15.5) Hematocrit 29.8 % (36.0-47.0) Mean Corpuscular Volume 90 fL (79-100) Mean Corpuscular Hemoglobin 28 pg (25-35) Mean Corpuscular Hemoglobin Concent 31 g/dL (31-37) Red Cell Distribution Width 15.2 % (11.5-14.5) Platelet Count 325 x10^3/uL (140-400) Neutrophils (%) (Auto) 67 % (31-73) Lymphocytes (%) (Auto) 21 % (24-48) Monocytes (%) (Auto) 9 % (0-9) Eosinophils (%) (Auto) 2 % (0-3) Basophils (%) (Auto) 1 % (0-3) Neutrophils # (Auto) 4.3 x10^3uL (1.8-7.7) Lymphocytes # (Auto) 1.3 x10^3/uL (1.0-4.8) Monocytes # (Auto) 0.6 x10^3/uL (0.0-1.1) Eosinophils # (Auto) 0.1 x10^3/uL (0.0-0.7) Basophils # (Auto) 0.1 x10^3/uL (0.0-0.2) Sodium Level 139 mmol/L (136-145) Potassium Level 4.6 mmol/L (3.5-5.1) Chloride Level 105 mmol/L (98-107) Carbon Dioxide Level 28 mmol/L (21-32) Anion Gap 6 (6-14) Blood Urea Nitrogen 9 mg/dL (7-20) Creatinine 0.7 mg/dL (0.6-1.0) Estimated GFR (Cockcroft-Gault) 100.4 Glucose Level 122 mg/dL (70-99) Calcium Level 8.3 mg/dL (8.5-10.1) Triglycerides Level 45 mg/dL (0-150) Cholesterol Level 168 mg/dL (0-200) LDL Cholesterol, Calculated 84 mg/dL (0-100) VLDL Cholesterol, Calculated 9 mg/dL (0-40) Non-HDL Cholesterol Calculated 93 mg/dL (0-129) HDL Cholesterol 75 mg/dL (40-60) Cholesterol/HDL Ratio 2.2 Test 02/09/17 06:42 Glucose (Fingerstick) 192 mg/dL (70-99) Medications Current Medications Acetaminophen (Tylenol) 650 mg PRN Q4HRS PRN PO FEVER; Start 02/08/17 at 10:00; Stop 02/08/17 at 11:39; Status DC Acetaminophen (Tylenol) 650 mg PRN Q6HRS PRN PO MILD PAIN / TEMP; Start at 11:30 Albuterol Sulfate (Ventolin Neb Soln) 2.5 mg PRN Q4HRS PRN NEB SHORTNESS OF BREATH; Start 02/08/17 at 17:30 Albuterol Sulfate (Ventolin Neb Soln) 2.5 mg Q6H NEB Last administered on 06:40; Start 02/08/17 at 18:00 Amiodarone HCl 150 mg/Dextrose 103 ml @ 10 mls/min 1X PRN PRN IV FOR VENTRICULAR TACHYCARDIA; Start 02/08/17 at 11:30 Amitriptyline HCl (Elavil) 10 mg HS PO Last administered on 02/08/17 20:41; Start 02/08/17 at 21:00 Aspirin (Children'S Aspirin) 81 mg 1X ONCE PO Last administered on 02/08/17 11 :15; Start 02/08/17 at 11:15; Stop 02/08/17 at 11:16; Status DC Aspirin (Ecotrin) 81 mg DAILYWBKFT PO Last administered on 02/09/17 08:13; Start 02/09/17 at 08:00 Atorvastatin Calcium (Lipitor) 10 mg QHS PO Last administered on 02/08/17 20:41 ; Start 02/08/17 at 21:00 Atorvastatin Calcium (Lipitor) 20 mg QHS PO ; Start 02/08/17 at 21:00; Stop at 21:00; Status DC Atorvastatin Calcium (Lipitor) 80 mg QHS PO Last administered on 02/08/17 20:41 ; Start 02/08/17 at 21:00 Atropine Sulfate 0.5 mg PRN 1X PRN IV BRADYCARDIA; Start 02/08/17 at 11:30 Budesonide (Pulmicort) 0.5 mg Q12H NEB Last administered on 02/09/17 06:40; Start 02/08/17 at 18:00 Dextrose (Dextrose 50%-Water Syringe) 12.5 gm PRN Q15MIN PRN IV SEE COMMENTS; Start 02/08/17 at 17:30 Duloxetine HCl (Cymbalta) 60 mg DAILY PO Last administered on 02/09/17 08:13; Start 02/09/17 at 09:00 Fentanyl Citrate (Fentanyl 2ml Vial) 25 mcg 1X PRN PRN IV Give prior to sheath removal; Start 02/08/17 at 11:30; Stop 02/09/17 at 11:29 Fentanyl Citrate (Fentanyl 2ml Vial) 50 mcg PRN Q1HR PRN IV MODERATE OR SEVERE PAIN; Start 02/08/17 at 11:30 Fentanyl Citrate (Fentanyl 2ml Vial) 100 mcg 1X ONCE IV Last administered on 10:52; Start 02/08/17 at 10:15; Stop 02/08/17 at 10:39; Status DC Fentanyl Citrate (Fentanyl 2ml Vial) 100 mcg STK-MED ONCE .ROUTE ; Start at 10:05; Stop 02/08/17 at 10:06; Status DC Heparin Sodium (Porcine) (Heparin Sodium) 1,750 unit PRN Q6HRS PRN IV FOR UFH LEVEL LESS THAN 0.2; Start 02/08/17 at 10:00; Stop 02/09/17 at 08:08; Status DC Heparin Sodium (Porcine) (Heparin Sodium) 2,000 unit 1X ONCE IV Last administered on 02/08/17 11:15; Start 02/08/17 at 10:15; Stop 02/08/17 at 10:39; Status DC Heparin Sodium (Porcine) (Heparin Sodium) 4,000 unit 1X ONCE IV Last administered on 5/8/17at 10:00; Start 02/08/17 at 10:00; Stop 02/08/17 at 10:05; Status DC Heparin Sodium (Porcine) (Heparin Sodium) 10,000 unit STK-MED ONCE .ROUTE ; Start 02/08/17 at 09:57; Stop 02/08/17 at 09:58; Status DC Heparin Sodium (Porcine) (Heparin Sodium) 10,000 unit STK-MED ONCE .ROUTE ; Start 02/08/17 at 10:18; Stop 02/08/17 at 10:19; Status DC Heparin Sodium/ Dextrose 500 ml @ 0 mls/hr CONT PRN IV SEE I/O RECORD; Start at 10:00; Stop 02/09/17 at 08:07; Status DC Heparin Sodium/ Sodium Chloride 500 ml @ As Directed STK-MED ONCE .ROUTE ; Start 02/08/17 at 10:48; Stop 02/08/17 at 10:49; Status DC Heparin Sodium/ Sodium Chloride 500 ml @ As Directed STK-MED ONCE .ROUTE ; Start 02/08/17 at 11:02; Stop 02/08/17 at 11:03; Status DC Heparin Sodium/ Sodium Chloride 1,000 ml @ As Directed STK-MED ONCE .ROUTE ; Start 02/08/17 at 09:58; Stop 02/08/17 at 09:59; Status DC Heparin Sodium/ Sodium Chloride 1,000 unit 1X ONCE IV Last administered on 02/08t 10:52; Start 02/08/17 at 10:15; Stop 02/08/17 at 10:39; Status DC Info (Do NOT chart on this entry -- for MONITORING) 1 each PRN DAILY PRN MC SEE COMMENTS; Start 02/08/17 at 10:45; Stop 02/10/17 at 10:44 Insulin Aspart (Novolog) 0-7 UNITS TIDWMEALS SQ Last administered on 02/09/17 08:14; Start 02/09/17 at 08:00 Iodixanol (Visipaque 320) 100 ml 1X ONCE IV Last administered on 02/08/17 10: 53; Start 02/08/17 at 10:15; Stop 02/08/17 at 10:39; Status DC Iodixanol (Visipaque 320) 100 ml STK-MED ONCE .ROUTE ; Start 02/08/17 at 09:59; Stop 02/08/17 at 10:00; Status DC Lidocaine HCl 20 ml 1X ONCE IJ Last administered on 02/08/17 10:51; Start 02/08 at 10:15; Stop 02/08/17 at 10:39; Status DC Lidocaine HCl 20 ml STK-MED ONCE .ROUTE ; Start 02/08/17 at 09:58; Stop 02/08/17 at 09:59; Status DC Lidocaine HCl (Lidocaine HCl 2% Abboject) 100 mg 1X PRN PRN IV FOR VENTRICULAR TACHYCARDIA; Start 02/08/17 at 11:30 Lisinopril (Prinivil) 5 mg DAILY PO Last administered on 02/09/17 08:13; Start 02/08/17 at 13:00 Lisinopril (Prinivil) 5 mg DAILY PO ; Start 02/09/17 at 09:00; Stop 02/09/17 at 09 :00; Status DC Magnesium Sulfate/ Dextrose 100 ml @ 25 mls/hr 1X ONCE IV Last administered on 02/08/17 15:45; Start 02/08/17 at 15:30; Stop 02/08/17 at 19:29; Status DC Metformin HCl (Glucophage Xr) 500 mg HS PO ; Start 02/10/17 at 21:00 Metoprolol Succinate (Toprol Xl) 25 mg DAILY PO Last administered on 02/09/17 08:13; Start 02/09/17 at 09:00 Metoprolol Tartrate (Lopressor) 12.5 mg BID PO Last administered on 02/08/17 20 :42; Start 02/08/17 at 21:00; Stop 02/09/17 at 08:03; Status DC Midazolam HCl (Versed) 2 mg 1X ONCE IV Last administered on 02/08/17 10:53; Start 02/08/17 at 10:15; Stop 02/08/17 at 10:39; Status DC Midazolam HCl (Versed) 2 mg STK-MED ONCE .ROUTE ; Start 02/08/17 at 10:05; Stop 02/08/17 at 10:06; Status DC Morphine Sulfate 2 mg PRN Q2HR PRN IV PAIN Last administered on 02/09/17 00:11 ; Start 02/08/17 at 10:00; Stop 02/09/17 at 09:59 Nitroglycerin (Nitrostat) 0.4 mg PRN Q5MIN PRN SL CHEST PAIN; Start 02/08/17 at 11:30 Non-Formulary Medication 2 puff BID IH ; Start 02/08/17 at 21:00; Stop 02/08/17 at 21:00; Status DC Non-Formulary Medication 2 puff PRN Q4-6HRS IH ; Start 02/08/17 at 17:30; Stop at 17:33; Status DC Ondansetron HCl (Zofran) 4 mg PRN Q8HRS PRN IV NAUSEA/VOMITING; Start 02/08/17 at 10:00; Stop 02/09/17 at 09:59 Potassium Chloride (Klor-Con) 40 meq 1X ONCE PO Last administered on 02/08/17 15:45; Start 02/08/17 at 14:30; Stop 02/08/17 at 14:31; Status DC Prasugrel (Effient) 10 mg DAILYWBKFT PO Last administered on 02/09/17 08:13; Start 02/09/17 at 08:00 Prasugrel (Effient) 10 mg STK-MED ONCE .ROUTE ; Start 02/08/17 at 11:13; Stop 02/08/17 at 11:14; Status DC Prasugrel (Effient) 60 mg 1X ONCE PO Last administered on 02/08/17 11:30; Start 02/08/17 at 11:30; Stop 02/08/17 at 11:35; Status DC Prasugrel (Effient) 60 mg STAT PO ; Start 02/08/17 at 11:15; Status Cancel Sodium Chloride 1,000 ml @ 50 mls/hr Q20H IV Last administered on 02/09/17 08: 12; Start 02/08/17 at 11:28 Sodium Chloride (Normal Saline Flush) 3 ml QSHIFT PRN IV AFTER MEDS AND BLOOD DRAWS; Start 02/08/17 at 11:30 Tirofiban/Sodium Chloride 100 ml @ As Directed STK-MED ONCE IV ; Start 02/08/17 at 10:18; Stop 02/08/17 at 10:19; Status DC Tirofiban/Sodium Chloride 100 ml @ 0 mls/hr 1X ONCE IV Last administered on 10:54; Start 02/08/17 at 10:15; Stop 02/08/17 at 10:39; Status DC Tirofiban/Sodium Chloride 250 ml @ 0 mls/hr CONT PRN IV PER PROTOCOL Last administered on 02/08/17 13:46; Start 02/08/17 at 10:15 Tirofiban/Sodium Chloride 250 ml @ 0 mls/hr CONT PRN IV PER PROTOCOL; Start 02/08/17 at 11:30; Stop 02/08/17 at 11:40; Status DC Vitals/I & O Vital Sign - Last 24 Hours 02/08/17 02/08/17 02/08/17 02/08/17 09:50 10:52 10:54 11:43 Pulse 85 85 Resp 14 25 21 B/P (MAP) 110/72 (85) 143/66 (91) Pulse Ox 98 100 100 O2 Delivery Room Air Nasal Cannula Nasal Cannula O2 Flow Rate 3.0 2.0 02/08/17 02/08/17 02/08/17 02/08/17 11:45 11:45 12:00 12:00 Temp 98.4 98.4 98.4 98.4 Pulse 78 80 Resp 16 16 16 B/P (MAP) 146/64 (91) 146/64 (91) 134/58 (83) Pulse Ox 96 95 97 O2 Delivery Nasal Cannula Nasal Cannula Nasal Cannula Nasal Cannula O2 Flow Rate 2.0 2.0 2.0 2.0 02/08/17 02/08/17 02/08/17 02/08/17 13:00 13:52 14:00 15:00 Pulse 80 80 80 74 Resp 20 20 18 B/P (MAP) 138/66 (90) 117/41 110/42 (64) 112/50 (70) Pulse Ox 100 100 100 O2 Delivery Nasal Cannula Nasal Cannula Nasal Cannula O2 Flow Rate 4.0 4.0 4.0 02/08/17 02/08/17 02/08/17 02/08/17 16:00 16:00 17:00 18:00 Temp 97.5 97.5 Pulse 76 79 62 Resp 20 18 18 B/P (MAP) 138/62 (87) 134/68 (90) 111/66 (81) Pulse Ox 100 97 99 O2 Delivery Nasal Cannula Nasal Cannula Nasal Cannula Nasal Cannula O2 Flow Rate 2.0 2.0 2.0 2.0 02/08/17 02/08/17 02/08/17 02/08/17 18:15 18:30 18:45 19:00 Temp 98.3 98.3 Pulse 64 68 68 74 Resp 16 16 18 18 B/P (MAP) 115/69 (84) 120/75 (90) 118/72 (87) 115/64 (81) Pulse Ox 99 98 98 99 O2 Delivery Nasal Cannula Nasal Cannula Nasal Cannula Nasal Cannula O2 Flow Rate 2.0 2.0 2.0 3.0 02/08/17 02/08/17 02/08/17 02/08/17 19:45 20:00 20:19 20:21 Pulse 78 Resp 18 B/P (MAP) 134/69 (90) Pulse Ox 99 100 100 O2 Delivery Nasal Cannula Nasal Cannula Nasal Cannula Nasal Cannula O2 Flow Rate 3.0 3.0 2.0 2.0 02/08/17 02/08/17 02/08/17 02/08/17 20:42 20:43 21:00 22:00 Pulse 79 80 74 Resp 20 16 15 B/P (MAP) 117/68 117/68 (84) 124/73 (90) Pulse Ox 99 98 98 O2 Delivery Nasal Cannula Nasal Cannula Nasal Cannula O2 Flow Rate 3.0 3.0 3.0 02/08/17 02/08/17 02/09/17 02/09/17 23:00 23:16 00:00 00:00 Temp 97.9 97.9 Pulse 64 75 Resp 16 17 B/P (MAP) 124/66 (85) 124/70 (88) Pulse Ox 99 96 97 O2 Delivery Nasal Cannula Nasal Cannula Nasal Cannula Nasal Cannula O2 Flow Rate 3.0 2.0 3.0 3.0 02/09/17 02/09/17 02/09/17 02/09/17 00:11 00:45 01:00 02:00 Pulse 75 74 Resp 23 17 B/P (MAP) 139/79 (99) 128/79 (95) Pulse Ox 97 96 96 96 O2 Delivery Nasal Cannula Nasal Cannula Nasal Cannula Nasal Cannula O2 Flow Rate 3.0 3.0 3.0 3.0 02/09/17 02/09/17 02/09/17 02/09/17 03:00 04:00 04:00 05:00 Temp 98.0 98.0 Pulse 70 64 62 Resp 17 20 26 B/P (MAP) 127/79 (95) 118/68 (85) 123/67 (85) Pulse Ox 95 98 98 O2 Delivery Nasal Cannula Nasal Cannula Nasal Cannula Nasal Cannula O2 Flow Rate 3.0 3.0 3.0 3.0 02/09/17 02/09/17 02/09/17 02/09/17 06:00 06:41 06:42 07:00 Temp 98.4 98.4 Pulse 66 65 Resp 20 B/P (MAP) 135/73 (93) 135/73 (93) Pulse Ox 98 95 95 97 O2 Delivery Nasal Cannula Nasal Cannula Nasal Cannula Nasal Cannula O2 Flow Rate 3.0 5.0 5.0 2.0 02/09/17 02/09/17 02/09/17 02/09/17 07:41 08:00 08:13 08:13 Pulse 65 65 65 Resp 20 B/P (MAP) 112/63 (79) 135/73 135/73 Pulse Ox 97 O2 Delivery Nasal Cannula Nasal Cannula O2 Flow Rate 2.0 2.0 Intake and Output 02/08/17 02/08/17 02/09/17 15:00 23:00 07:00 Intake Total 100 ml 390 ml 1295 ml Output Total 450 ml Balance 100 ml -60 ml 1295 ml ANNELIESE ELLIS MD February 09, 2017 09:41
[2017-02-09 10:17] LABS: % SAT IRON 8 % (15-34); IRON,SERUM 24 ug/dL (50-170)
[2017-02-09] MEDS: NICOTINE 14MG PATCH. TD SCH (10:46)
--- NOTE | 2017-02-09 12:27 | PDOC ---
CARDIO Progress Notes Date and Time Date of Service 02/09/2017 Time of Evaluation 1215 Subjective Subjective: No Chest Pain, No shortness of breath, No Palpitations, No Dizziness Vitals Vitals Vital Signs Date Time Temp Pulse Resp B/P (MAP) Pulse Ox O2 Delivery O2 Flow Rate FiO2 02/09/17 11:00 74 22 150/73 (98) 93 02/09/17 08:00 Nasal Cannula 2.0 02/09/17 07:00 98.4 98.4 Weight Weight [ ] Input and Output Intake and Output Intake and Output 02/09/17 07:00 Intake Total 1785 ml Output Total 450 ml Balance 1335 ml Intake Oral 490 ml IV Total 1295 ml Output Urine Total 450 ml # Voids 2 Laboratory Labs Laboratory Tests Test 02/08/17 12:50 02/08/17 15:15 02/08/17 17:49 02/08/17 21:05 Nasal Screen MRSA (PCR) Negative (Negative) Troponin I Quantitative 16.896 ng/mL (0.000-0.055) 34.384 ng/mL (0.000-0.055) Glucose (Fingerstick) 118 mg/dL (70-99) Magnesium Level 2.5 mg/dL (1.8-2.4) Test 02/08/17 21:32 02/09/17 05:20 02/09/17 06:42 Glucose (Fingerstick) 116 mg/dL (70-99) 192 mg/dL (70-99) White Blood Count 6.5 x10^3/uL (4.0-11.0) Red Blood Count 3.31 x10^6/uL (3.50-5.40) Hemoglobin 9.3 g/dL (12.0-15.5) Hematocrit 29.8 % (36.0-47.0) Mean Corpuscular Volume 90 fL (79-100) Mean Corpuscular Hemoglobin 28 pg (25-35) Mean Corpuscular Hemoglobin Concent 31 g/dL (31-37) Red Cell Distribution Width 15.2 % (11.5-14.5) Platelet Count 325 x10^3/uL (140-400) Neutrophils (%) (Auto) 67 % (31-73) Lymphocytes (%) (Auto) 21 % (24-48) Monocytes (%) (Auto) 9 % (0-9) Eosinophils (%) (Auto) 2 % (0-3) Basophils (%) (Auto) 1 % (0-3) Neutrophils # (Auto) 4.3 x10^3uL (1.8-7.7) Lymphocytes # (Auto) 1.3 x10^3/uL (1.0-4.8) Monocytes # (Auto) 0.6 x10^3/uL (0.0-1.1) Eosinophils # (Auto) 0.1 x10^3/uL (0.0-0.7) Basophils # (Auto) 0.1 x10^3/uL (0.0-0.2) Reticulocyte Count (auto) 0.7 % (0.5-2.5) Sodium Level 139 mmol/L (136-145) Potassium Level 4.6 mmol/L (3.5-5.1) Chloride Level 105 mmol/L (98-107) Carbon Dioxide Level 28 mmol/L (21-32) Anion Gap 6 (6-14) Blood Urea Nitrogen 9 mg/dL (7-20) Creatinine 0.7 mg/dL (0.6-1.0) Estimated GFR (Cockcroft-Gault) 100.4 Glucose Level 122 mg/dL (70-99) Calcium Level 8.3 mg/dL (8.5-10.1) Magnesium Level 2.1 mg/dL (1.8-2.4) Iron Level 24 ug/dL (50-170) Total Iron Binding Capacity 299 ug/dL (250-450) Iron Saturation 8 % (15-34) Ferritin 23 ng/mL (8-252) Triglycerides Level 45 mg/dL (0-150) Cholesterol Level 168 mg/dL (0-200) LDL Cholesterol, Calculated 84 mg/dL (0-100) VLDL Cholesterol, Calculated 9 mg/dL (0-40) Non-HDL Cholesterol Calculated 93 mg/dL (0-129) HDL Cholesterol 75 mg/dL (40-60) Cholesterol/HDL Ratio 2.2 Physical Exam HEENT: Neck Supple W Full Motion Chest: Symmetric LUNGS: Clear to Auscultation Heart: S1S2, RRR, other (tele: SR with occasional PVCs) Abdomen: Soft N/T Extremities: 2+ Dorsalis Pedis, 2+ Posterior Tibial, No Edema Neurology: alert, oriented, follow commands Assessment Assessment 1. STEMI history of stents to LAD and RCA 2.75 x 38 MARTHA to mid LAD on 02/08/2017 - DAPT recommended X 12 months medical management with statins, beta-blockers and ACEI 2. HTN continue medications 3. HLD LDLs = 84 treated with 90 mg atorvastatin per Keysha @ [facility] 4. DM, II per primary service 5. hypokalemia treated 02/08 and WNL today 6. hypomagnesemia replaced 02/08 and WNL today Transfer to [facility] today ? home tomorrow RENETTA PARKINSON [employer] February 09, 2017 12:27
--- NOTE | 2017-02-09 14:15 | RAD ---
Indication: Interstitial lung disease and scarring. Axial imaging through the chest was performed without contrast and utilizing the high-resolution protocol. Prone and supine imaging was performed. No prior studies are available for comparison. No axillary lymphadenopathy is seen. Hilar and mediastinal evaluation is limited without intravenous contrast. Coronary arterial calcifications are noted. There is no pericardial fluid. There is trace pleural fluid on the right, layering dependently. The central airways are unremarkable. No significant peribronchial interstitial thickening is seen. No bronchiectasis is identified. No air trapping is identified. There are mild centrilobular emphysematous changes noted. There appear to be very mild groundglass opacities in the posterior right upper lobe and posterior right lower lobe. Mild interlobular septal thickening is seen. There is some mild interstitial nodular component present. No definite honeycombing is present. Left lung appears to be fairly clear. No air cyst formation is seen. Impression: Small right pleural effusion. There are interstitial nodular opacities identified in the right upper lobe posteriorly and the right lower lobe posteriorly with associated interlobular septal thickening. This is unilateral, the left lung is clear. This could be on an infectious or inflammatory basis. No definite honeycombing is identified. PQRS Compliance Statement: One or more of the following individualized dose reduction techniques were utilized for this examination: 1. Automated exposure control 2. Adjustment of the mA and/or kV according to patient size 3. Use of iterative reconstruction technique
[2017-02-09] MEDS: IRON SUCROSE COMPLEX 100 MG in IV NORMAL SALINE 100ML 100 ML IV SCH (14:16)
--- NOTE | 2017-02-09 14:41 | CARD ---
APPROVED REPORT EXAM: Two-dimensional and M-mode echocardiogram with Doppler and color Doppler. Other Information Quality : Average Rhythm : NSR INDICATION post STEMI 2D DIMENSIONS RVDd3.2 (2.9-3.5cm)IVSd1.1 (0.7-1.1cm) LVDd4.4 (3.9-5.9cm)PWd1.0 (0.7-1.1cm) LVDs3.5 (2.5-4.0cm)FS (%) 21.2 % SV38.8 mlLVEF(%)43.2 (>50%) M-Mode DIMENSIONS Left Atrium(MM)3.93 (2.5-4.0cm)Aortic Root2.88 (2.2-3.7cm) Aortic Valve AoV Peak Doroteo.103.9cm/sAoV VTI19.1cm AO Peak GR.4.3mmHgLVOT VTI 19.74cm AO Mean GR.2mmHg Mitral Valve MV E Oprqipja010.7cm/sMV E Peak Gr.6mmHg MV DECEL [id number] A Lrjxxamt105.7cm/s MV [id number]/A Ratio0.8 MV A [id number] (PHT)3.06cm2 TDI Lateral E' P. V9.91cm/sMedial E' P. V6.11cm/s E/Lateral E'12.6E/Medial E'20.4 Tricuspid Valve TR P. [id number]/sRAP [id number] TR Peak Gr.[id number] LEFT VENTRICLE The left ventricle is normal size. There is normal left ventricular wall thickness. Left ventricle sy stolic function is moderately impaired. The Ejection Fraction is 35%. Moderate to severe hypokinesis of the mid to distal anterior wall, apex and distal inferior wall. Tissue Doppler imaging reveals mod erate left ventricular diastolic dysfunction. RIGHT VENTRICLE The right ventricle is normal size. The right ventricular systolic function is normal. ATRIA The left atrium size is normal. The right atrium size is normal. The interatrial septum is intact wit h no evidence for an atrial septal defect or patent foramen ovale as noted on 2-D or Doppler imaging. AORTIC VALVE The aortic valve is not well visualized but calcification is noted. Doppler and Color Flow revealed n o significant aortic regurgitation. There is no significant aortic valvular stenosis. MITRAL VALVE Mitral annular calcification is moderate. The mitral valve leaflets are calcified. There is no mitral valve stenosis. Doppler and Color Flow revealed mild mitral regurgitation. TRICUSPID VALVE The tricuspid valve is normal in structure. Doppler and Color Flow revealed mild tricuspid regurgitat ion. The PA pressure was estimated at 31 mmHg. There is no tricuspid valve stenosis. PULMONIC VALVE The pulmonic valve is not well visualized. Doppler and Color Flow revealed no pulmonic valvular regur gitation. There is no pulmonic valvular stenosis. GREAT VESSELS The aortic root is normal in size. The IVC is normal in size and collapses >50% with inspiration. PERICARDIAL EFFUSION There is no evidence of significant pericardial effusion. Critical Notification Critical Value: No <Conclusion> Left ventricle systolic function is moderately impaired. The Ejection Fraction is 35%. Moderate to severe hypokinesis of the mid to distal anterior wall, apex and distal inferior wall.
[2017-02-09] MEDS: ACETAMINOPHEN 325 MG TABLET. PO PRN (16:01)
[2017-02-09] MEDS: ATORVASTATIN CALCIUM 40 MG TABLET. PO SCH (21:05)
[2017-02-09] MEDS: AMITRIPTYLINE HCL 10 MG TABLET. PO SCH (21:06)
[2017-02-10 03:25] VITALS: BP 133/69
[2017-02-10 03:47] LABS: BASO # 0.1 x10^3/uL (0.0-0.2); BASO % 1 % (0-3); EOS % 2 % (0-3); HEMATOCRIT 28.8 % (36.0-47.0); HEMOGLOBIN 9.6 g/dL (12.0-15.5); LYMPH # 1.4 x10^3/uL (1.0-4.8); LYMPH % 23 % (24-48); MEAN CORPUSCULAR HEMOGLOBIN 29 pg (25-35); MEAN CORPUSCULAR HGB CONC 33 g/dL (31-37); MEAN CORPUSCULAR VOLUME 87 fL (79-100); MONO % 12 % (0-9); NEUT % 62 % (31-73); PLATELET COUNT 297 x10^3/uL (140-400); RED BLOOD COUNT 3.32 x10^6/uL (3.50-5.40); RED CELL DISTRIBUTION WIDTH 15.8 % (11.5-14.5); WHITE BLOOD COUNT 6.2 x10^3/uL (4.0-11.0)
[2017-02-10 03:58] LABS: CALCIUM 8.4 mg/dL (8.5-10.1); CREATININE 0.7 mg/dL (0.6-1.0); GFR 100.4; POTASSIUM 3.9 mmol/L (3.5-5.1)
[2017-02-10 07:20] VITALS: BP 144/77
[2017-02-10] MEDS: ALBUTEROL SULFATE 2.5 MG/3 ML NEBU. NEB SCH ×2 (07:21→11:58)
[2017-02-10] MEDS: BUDESONIDE 0.5 MG/2 ML NEBU. NEB SCH (07:21)
[2017-02-10] MEDS: INSULIN ASPART 300 UNITS/3 ML INSULN.PEN SQ SCH ×2 (08:00→11:50)
[2017-02-10] MEDS: PRASUGREL 10 MG TABLET. PO SCH (08:36)
[2017-02-10] MEDS: DULoxetine HCL 30 MG CAPSULE.DR PO SCH (08:36)
[2017-02-10] MEDS: ACETAMINOPHEN 325 MG TABLET. PO PRN (08:36)
[2017-02-10] MEDS: ASPIRIN ENTERIC COATED 81 MG TABLET.DR. PO SCH (08:37)
[2017-02-10] MEDS: METOPROLOL SUCC 24HR ER 25 MG TAB.ER.24H. PO SCH (08:37)
[2017-02-10] MEDS: LISINOPRIL 5 MG TABLET. PO SCH (08:37)
[2017-02-10] MEDS: NICOTINE 14MG PATCH. TD SCH (08:38)
--- NOTE | 2017-02-10 10:10 | PDOC ---
PROGRESS NOTES Subjective Subjective feeling better today Objective Objective Vital Signs Date Time Temp Pulse Resp B/P (MAP) Pulse Ox O2 Delivery O2 Flow Rate FiO2 02/10/17 08:37 72 144/77 02/10/17 08:19 Room Air 02/10/17 07:30 92 02/10/17 07:20 98.1 18 98.1 02/09/17 12:14 5.0 Intake and Output 02/10/17 06:59 Intake Total 1200 ml Balance 1200 ml Intake Oral 630 ml IV Total 570 ml # Voids 3 # Bowel Movements 1 Physical Exam Abdomen: Normal bowel sounds Heart: Regular rate Extremities: No clubbing General: moderate distress HEENT: Atraumatic Lungs: Clear to auscultation MUSCULOSKELETAL: No swelling Neuro: Normal speech Psych/Mental Status: Mental status NL Skin: No breakdown Diagnosis Problem List Problems Medical Problems: (1) STEMI (ST elevation myocardial infarction) Status: Acute Assessment Assessment Problems Medical Problems: (1) STEMI (ST elevation myocardial infarction) Status: Acute FINAL IMPRESSION: 1. ST elevation myocardial infarction. 2. Cardiac Cath shows an occluded mid left anterior descending coronary artery. The patient had drug-coated stent placed and admitted to the ICU. 3. History of previous coronary artery disease, previous stents. 4. Hypertension. 5. Hyperlipidemia. 6. Diabetes. 7.smoking addiction 8.Anemia? ch disease. PLAN: spoke with pulmonary po antibiotics+prednisone . repeat ct chest in [address] abd and pelvis today ,out pt GI work up for weight loss. doing well after stent placement to LAD. cxr showed ?ILD. will do ct chest left lung infiltrate. smoking counseling done. anemia will do iron +vit levels. will check last time had colonoscopy?. Problems: Plan Plan of Care Problems Medical Problems: (1) STEMI (ST elevation myocardial infarction) Status: Acute Comment Review of Relevant I have reviewed the following items adry (where applicable) has been applied. Labs Laboratory Tests Test 02/09/17 12:23 02/09/17 17:06 02/09/17 20:39 02/10/17 02:40 Glucose (Fingerstick) 105 mg/dL (70-99) 110 mg/dL (70-99) 108 mg/dL (70-99) White Blood Count 6.2 x10^3/uL (4.0-11.0) Red Blood Count 3.32 x10^6/uL (3.50-5.40) Hemoglobin 9.6 g/dL (12.0-15.5) Hematocrit 28.8 % (36.0-47.0) Mean Corpuscular Volume 87 fL (79-100) Mean Corpuscular Hemoglobin 29 pg (25-35) Mean Corpuscular Hemoglobin Concent 33 g/dL (31-37) Red Cell Distribution Width 15.8 % (11.5-14.5) Platelet Count 297 x10^3/uL (140-400) Neutrophils (%) (Auto) 62 % (31-73) Lymphocytes (%) (Auto) 23 % (24-48) Monocytes (%) (Auto) 12 % (0-9) Eosinophils (%) (Auto) 2 % (0-3) Basophils (%) (Auto) 1 % (0-3) Neutrophils # (Auto) 3.8 x10^3uL (1.8-7.7) Lymphocytes # (Auto) 1.4 x10^3/uL (1.0-4.8) Monocytes # (Auto) 0.7 x10^3/uL (0.0-1.1) Eosinophils # (Auto) 0.1 x10^3/uL (0.0-0.7) Basophils # (Auto) 0.1 x10^3/uL (0.0-0.2) Reticulocyte Count (auto) 0.8 % (0.5-2.5) Sodium Level 141 mmol/L (136-145) Potassium Level 3.9 mmol/L (3.5-5.1) Chloride Level 105 mmol/L (98-107) Carbon Dioxide Level 29 mmol/L (21-32) Anion Gap 7 (6-14) Blood Urea Nitrogen 15 mg/dL (7-20) Creatinine 0.7 mg/dL (0.6-1.0) Estimated GFR (Cockcroft-Gault) 100.4 Glucose Level 111 mg/dL (70-99) Calcium Level 8.4 mg/dL (8.5-10.1) Test 02/10/17 07:31 Glucose (Fingerstick) 107 mg/dL (70-99) Medications Current Medications Iron Sucrose 100 mg/Sodium Chloride 105 ml @ 52.5 mls/hr DAILY IV Last administered on 5/9/17at 14:16; Start 02/09/17 at 15:00; Stop 02/10/17 at 10:59 Levofloxacin/ Dextrose 100 ml @ 100 mls/hr Q24H IV Last administered on 17:32; Start 02/09/17 at 18:00 Metformin HCl (Glucophage Xr) 500 mg HS PO ; Start 02/10/17 at 21:00 Vitals/I & O Vital Sign - Last 24 Hours 02/09/17 02/09/17 02/09/17 02/09/17 11:00 12:14 14:25 19:37 Temp 98.8 98.8 Pulse 74 74 Resp 22 B/P (MAP) 150/73 (98) 112/68 (83) Pulse Ox 93 94 94 94 O2 Delivery Nasal Cannula Room Air O2 Flow Rate 5.0 02/09/17 02/09/17 02/09/17 02/09/17 20:05 20:05 23:00 23:48 Temp 98.4 98.5 98.4 98.5 Pulse 80 75 Resp 18 18 B/P (MAP) 140/65 (90) 144/72 (96) Pulse Ox 93 94 92 O2 Delivery Room Air Room Air Room Air Room Air 02/10/17 02/10/17 02/10/17 02/10/17 03:25 07:20 07:25 07:30 Temp 98.4 98.1 98.4 98.1 Pulse 73 72 Resp 18 18 B/P (MAP) 133/69 (90) 144/77 (99) Pulse Ox 93 100 92 92 O2 Delivery Room Air Room Air Room Air Room Air 02/10/17 02/10/17 02/10/17 08:19 08:37 08:37 Pulse 72 72 B/P (MAP) 144/77 144/77 O2 Delivery Room Air Intake and Output 02/09/17 02/09/17 02/10/17 14:59 22:59 06:59 Intake Total 635 ml 565 ml Balance 635 ml 565 ml ANNELIESE ELLIS MD February 10, 2017 10:09
[2017-02-10] MEDS ORDERED: ASPI81TA9 PO (10:19)
[2017-02-10] MEDS ORDERED: PRAS10TA9 PO (10:19)
--- NOTE | 2017-02-10 10:44 | PDOC ---
Provider Note Provider Note dictated LAKIA CALHOUN MD February 10, 2017 10:44
--- NOTE | 2017-02-10 10:53 | PDOC ---
CARDIO Progress Notes Date and Time Date of Service 02/10/2017 Time of Evaluation 1051 Subjective Subjective: No Chest Pain, No shortness of breath, No Palpitations, No Dizziness Vitals Vitals Vital Signs Date Time Temp Pulse Resp B/P (MAP) Pulse Ox O2 Delivery O2 Flow Rate FiO2 02/10/17 08:37 72 144/77 02/10/17 08:19 Room Air 02/10/17 07:30 92 02/10/17 07:20 98.1 18 98.1 02/09/17 12:14 5.0 Weight Weight [ ] Input and Output Intake and Output Intake and Output 02/10/17 07:00 Intake Total 1200 ml Balance 1200 ml Intake Oral 630 ml IV Total 570 ml # Voids 3 # Bowel Movements 1 Laboratory Labs Laboratory Tests Test 02/09/17 12:23 02/09/17 17:06 02/09/17 20:39 02/10/17 02:40 Glucose (Fingerstick) 105 mg/dL (70-99) 110 mg/dL (70-99) 108 mg/dL (70-99) White Blood Count 6.2 x10^3/uL (4.0-11.0) Red Blood Count 3.32 x10^6/uL (3.50-5.40) Hemoglobin 9.6 g/dL (12.0-15.5) Hematocrit 28.8 % (36.0-47.0) Mean Corpuscular Volume 87 fL (79-100) Mean Corpuscular Hemoglobin 29 pg (25-35) Mean Corpuscular Hemoglobin Concent 33 g/dL (31-37) Red Cell Distribution Width 15.8 % (11.5-14.5) Platelet Count 297 x10^3/uL (140-400) Neutrophils (%) (Auto) 62 % (31-73) Lymphocytes (%) (Auto) 23 % (24-48) Monocytes (%) (Auto) 12 % (0-9) Eosinophils (%) (Auto) 2 % (0-3) Basophils (%) (Auto) 1 % (0-3) Neutrophils # (Auto) 3.8 x10^3uL (1.8-7.7) Lymphocytes # (Auto) 1.4 x10^3/uL (1.0-4.8) Monocytes # (Auto) 0.7 x10^3/uL (0.0-1.1) Eosinophils # (Auto) 0.1 x10^3/uL (0.0-0.7) Basophils # (Auto) 0.1 x10^3/uL (0.0-0.2) Reticulocyte Count (auto) 0.8 % (0.5-2.5) Sodium Level 141 mmol/L (136-145) Potassium Level 3.9 mmol/L (3.5-5.1) Chloride Level 105 mmol/L (98-107) Carbon Dioxide Level 29 mmol/L (21-32) Anion Gap 7 (6-14) Blood Urea Nitrogen 15 mg/dL (7-20) Creatinine 0.7 mg/dL (0.6-1.0) Estimated GFR (Cockcroft-Gault) 100.4 Glucose Level 111 mg/dL (70-99) Calcium Level 8.4 mg/dL (8.5-10.1) Test 02/10/17 07:31 Glucose (Fingerstick) 107 mg/dL (70-99) Physical Exam HEENT: Neck Supple W Full Motion Chest: Symmetric LUNGS: Clear to Auscultation Heart: S1S2, RRR, other (tele: SR with occasional PVCs) Abdomen: Soft N/T Extremities: 2+ Dorsalis Pedis, 2+ Posterior Tibial, No Edema Neurology: alert, oriented, follow commands Assessment Assessment 1. STEMI history of stents to LAD and RCA 2.75 x 38 MARTHA to mid LAD on 02/08/2017 - DAPT recommended X 12 months medical management with statins, beta-blockers and ACEI 2. HTN continue medications 3. HLD LDLs = 84 treated with 90 mg atorvastatin per Keysha @ [facility] 4. DM, II per primary service replaced 02/08 and WNL today May discharge when agreeable with other services Keep scheduled appt with Dr. Chopra on 03/02/2017 and have advised patient to tell his office she was hospitalized here so they may obtain records. RENETTA PARKINSON [employer] February 10, 2017 10:53
[2017-02-10 11:00] VITALS: BP 112/62
[2017-02-10] MEDS: IRON SUCROSE COMPLEX 100 MG in IV NORMAL SALINE 100ML 100 ML IV SCH (11:23)
[2017-02-10] MEDS ORDERED: IOHEXOL 300 MG/ML 75 ML VIAL IV ONE (11:30)
[2017-02-10] MEDS ORDERED: CONTRAST GIVEN MC PRN (11:30)
--- NOTE | 2017-02-10 14:16 | CONS ---
DATE OF CONSULTATION: ATTENDING PHYSICIAN: Dr. Brito. REASON FOR CONSULTATION: Abnormal CT chest. HISTORY OF PRESENT ILLNESS: The patient is a 71-year-old female with history of hypertension, hyperlipidemia, diabetes and history of cardiac stents in 2004 and 2007. She presented to the hospital with chest pain and she had elevated troponin and ST elevation on EKG. [facility] ____ showed LAD occlusion and stent was placed. I have been asked to see her for further evaluation of abnormal CT chest. I reviewed the patient's CT chest. There is some faint interstitial infiltrates peripherally in the right lower lobe. There is a tiny small pleural effusion that is very tiny nodule and some minimal infiltrates seen in the right lower lobe as well. There is focal atelectasis, pleural based in the right lower lobe. This is appears to be noninfectious basis. She reports having one episode of hemoptysis. The patient has been having some bloating sensation, where she has no appetite. She has lost about 100 pounds in the last 1 year. The patient says every time when she eats, she feels bloated. I have been asked to see her for further evaluation. She has been a smoker for 40 years. She has not quit cigarettes. She is not on home oxygen. PAST MEDICAL HISTORY: History of suspected COPD, smoker for 40 years, history of diabetes, hypertension, hyperlipidemia, osteoporosis and cardiac stents. PAST SURGICAL HISTORY: Gallbladder surgery and cardiac stents. ALLERGIES: PENICILLIN. MEDICATIONS: Reviewed as listed in the MRAD including antibiotic, Levaquin, which was started by me yesterday. REVIEW OF SYSTEMS: Twelve-point systems obtained. Pertinent positives discussed in history of present illness, otherwise noncontributory. All systems that were negative were reviewed as well. SOCIAL HISTORY: Smoked for 40 years. PHYSICAL EXAMINATION: VITAL SIGNS: Blood pressure stable, pulse ox 92% on room air. NECK: Supple. LUNGS: Slightly diminished breath sounds right base. CARDIOVASCULAR: Regular rate and rhythm. ABDOMEN: Soft, nontender. EXTREMITIES: With no pitting edema. LABORATORY DATA: Reviewed. BUN and creatinine normal. White cell count 6.2, hemoglobin 9.6 and platelets are 297. IMPRESSION: 1. Abnormal CT chest as discussed above with some faint interstitial infiltrates peripherally in the right lower lobe and also focal parenchymal density pleural based in the right lower lobe along with some faint tiny nodule and tiny pleural effusion. The radiographic findings are suggestive of infectious etiology. We will give her trial of antibiotics and repeat CT chest in 4-6 weeks. 2. Unexplained weight loss of about 100 pounds since last 1 year. She has bloating and fullness upon eating meal and also has some cramping pain in the abdomen. She needs to be ruled out for a GI malignancy. 3. A 40 years of tobaccoism, suspect underlying chronic obstructive pulmonary disease. 4. Acute STEMI status post cardiac catheterization and LAD stent. RECOMMENDATIONS: 1. Discussed with Dr. Brito. I will obtain CT abdomen and pelvis before discharging. 2. We will continue oral Levaquin. 3. Short course of steroids. 4. Smoking cessation counseling provided. 5. CT abdomen and pelvis to rule out any occult malignancy. 6. PFTs as an outpatient. 7. Followup CT chest in 4-6 weeks to make sure parenchymal abnormalities have resolved and if they persist, she will need a diagnostic bronchoscopy. We will avoid any invasive procedure due to her recent FL and stent placement. LAKIA CALHOUN MD DR: STEPAN/cinthia JOB#: [id number] / [id number] ANNELIESE Klein MD MTDD
--- NOTE | 2017-02-10 14:34 | RAD ---
Indication: Unexplained weight loss. Axial imaging through the abdomen and pelvis was performed without contrast. Comparison is made with prior CT from 06/30/2010. Imaging through the lung bases demonstrates a small right pleural effusion. No discrete liver mass is identified. The pancreas and spleen are unremarkable. No adrenal mass is identified. The kidneys are unremarkable. Aorta is heavily calcified but nonaneurysmal. There appears to be wall thickening involving the gastric antrum and pylorus and possibly the proximal duodenum. This may be owing to peptic ulcer disease. No free air is identified. There is a large amount of stool throughout the colon consistent with constipation. The small bowel is nondilated. No central retroperitoneal or mesenteric lymphadenopathy is seen. The bladder is unremarkable. The uterus is unremarkable. No pelvic lymphadenopathy is identified. Impression: 1. Small right pleural effusion. 2. Thickening in the region of the gastric antrum, pylorus and proximal duodenum, perhaps owing to peptic ulcer disease. Correlation with endoscopy could be performed. 3. Constipation. 4. No other significant abnormality is identified.
[2017-02-10 15:00] VITALS: BP 125/57
[2017-02-11 13:09] LABS: FOLATE 2.91 ng/ml (3.2-20.0)
[2017-02-12] MEDS ORDERED: metFORMIN XR 500 MG TAB.ER.24H PO SCH (21:00)
--- NOTE | 2017-02-19 15:56 | PDOC ---
Provider Note Provider Note discharge summary dictated. #[id number] ANNELIESE ELLIS MD February 19, 2017 15:56
--- NOTE | 2017-02-20 00:31 | DS ---
DATE OF DISCHARGE: 02/10/2017 REASON FOR ADMISSION TO THE HOSPITAL: Chest pain, STEMI. CONSULTATIONS: Dr. Trejo and Dr. Martino. PROCEDURES DONE: 1. Cardiac cath, angioplasty, stent. 2. Echocardiogram. 3. CT of the chest, abdomen and pelvis. HOSPITAL COURSE: The patient is a 71-year-old female with a history of cardiac stents in the past in 2004 and 2007, history of hypertension, hyperlipidemia, diabetes, who came with chest pain. She was found to have ST-segment elevation with positive troponin. The patient was diagnosed with acute STEMI. The patient was taken to cardiac cath, had an occluded mid LAD, no significant other lesions. Drug-coated stent was placed in LAD. Echocardiogram shows ejection fraction 35%, moderately impaired systolic function, hypokinesia of the anterior wall, apex and inferior wall. The patient was also seen by Pulmonology. Chest x-ray shows infiltrates. CT shows infiltrates in the lung, was thought could be pneumonia. The patient had a CT of the abdomen and pelvis because she has lost some weight, some thickening of the gastric mucosa. The patient continues to smoke. Smoking counseling was done. Hemoglobin 9.6. She had a colonoscopy 6 months ago, was negative. was normal. Folic acid was low at 2.9, low iron, A1c 5.2, cholesterol 168, LDL 84, HDL 75. Troponin went up to 16.8 and as said, CT chest shows unilateral infiltrates in the lung, possible pneumonia. CT of the abdomen and pelvis shows gastric thickening. FINAL IMPRESSION: 1. Acute ST-segment elevation myocardial infarction, had a drug-coated stent placed in the mid left anterior descending. 2. History of previous cardiac stents in the past, which were open. 3. Acute systolic heart failure, ejection fraction 35%. 4. Anemia of iron deficiency, had a colonoscopy 2015-. 5. Thickening of the gastric mucosa, needs GI workup as outpatient. 6. Hypertension. 7. Hyperlipidemia. 8. Diabetes. 9.smoking addiction, counseling done DISPOSITION: Home. DISCHARGE MEDICATIONS: See MRAD. ADDENDUM: The patient needs to have GI workup, EGD because of gastric thickening and anemia and weight loss. ANNELIESE ELLIS MD DR: CHESTER/cinthia JOB#: [id number] / [id number] MONICA Harper
== END 2017-02-10 16:50 | disposition home or self-care (01) | DRG 246 ==
LOC: ER 09:59 → 1 WEST ICU 10:27 → 2 SOUTH 02-09 19:41
PROVIDERS: ADMIT Internal Medicine; ATTEND Internal Medicine
PROC: 027034Z Dilation of Coronary Artery, One Artery with Drug-eluting Intraluminal Device, Percutaneous Approach (ICD-10-PCS; principal; 2017-02-08)
PROC: 4A023N7 Measurement of Cardiac Sampling and Pressure, Left Heart, Percutaneous Approach (ICD-10-PCS; 2017-02-08)
PROC: B2151ZZ Fluoroscopy of Left Heart using Low Osmolar Contrast (ICD-10-PCS; 2017-02-08)
PROC: B2111ZZ Fluoroscopy of Multiple Coronary Arteries using Low Osmolar Contrast (ICD-10-PCS; 2017-02-08)
DX: I21.3 ST elevation (STEMI) myocardial infarction of unspecified site (principal); J18.9 Pneumonia, unspecified organism; I50.21 Acute systolic (congestive) heart failure; J98.11 Atelectasis; E11.9 Type 2 diabetes mellitus without complications; E78.00 Pure hypercholesterolemia, unspecified; E78.5 Hyperlipidemia, unspecified; E83.42 Hypomagnesemia; E87.6 Hypokalemia; I10 Essential (primary) hypertension; I25.10 Atherosclerotic heart disease of native coronary artery without angina pectoris; I25.2 Old myocardial infarction; M81.0 Age-related osteoporosis without current pathological fracture; Z87.891 Personal history of nicotine dependence; Z95.5 Presence of coronary angioplasty implant and graft; Z90.49 Acquired absence of other specified parts of digestive tract; Z82.49 Family history of ischemic heart disease and other diseases of the circulatory system
CPT/HCPCS: 36415; 71010; 71250; 74177; 80048; 80053; 80061; 82607; 82728; 82746; 82947; 83036; 83540; 83550; 83735; 83880; 84484; 85027; 85045; 85347; 85610; 85730; 87641; 92941; 93005; 93306; 93458; 94250; 94620; 94640; 96374; 99406; C1725; C1769; C1874; C1887; C1892; J1756; J1815; J1956; J2250; J2270; J3010; J3475; J7030; Q9967; 97530; 97535; 99285-25; J3246

== ENCOUNTER → 2017-03-23 | Day surgery (SDC) | payer MEDICARE, OTHER ==
[~2017-03-23] MED LIST changes: +ALBUTEROL SULFATE 2.5 MG/3 ML NEBU. NEB ONE; +ASPI-612 PO; -ASPI325T4 PO; +ASPI325T8 PO; +ATOR80TA72 PO; +CARV6.25 PO; +CELE100C PO; -CLOP75TA27 PO; +CLOP75TA57 PO; +DICL100G18 TP; -DICL100G7 TP; +DULO60CA6 PO; -HYDR-2666 PO; +HYDR-2758 PO; +IV RINGERS,LACTATED 1000ML 1,000 ML IV SCH; -LANS30CA17 PO; +LANS30CA66 PO; +METF500T9 PO; +METO25TA9 PO; +NITR0.4T SL; +OMEP20CA9 PO; +PROPOFOL 20 ML IV ONE; +RANI150C PO; +TIZA4TAB PO
--- NOTE | 2017-03-23 09:26 | PDOC1 ---
HISTORY & PHYSICAL H&P Rinku Luna [id number] 1945 03/16/2017 03:10 PM 10/04 [place] [facility], [facility] OUR PATIENTS COME FIRST [address] [place], [place] [id number] Ph. [phone] Patient: Rinku Luna Date of : 1945 Date: 03/16/2017 3:10 PM Visit Type: Office Visit This 71 year old female presents for Dysphagia. History of Present Illness: 1. Dysphagia The symptoms occur with solids and liquids which cause choking and gagging with food sticking in the lower chest. The symptoms are felt to be related to meals. The symptoms are not related to history of stroke. The patient has a history of reflux. There is no history of Trevino's esophagus or stroke. The patient denies aggravating factors. The patient denies relieving factors. The patient is also experiencing choking and food sticking. The patient denies anorexia, bloating, chest pain, hoarseness or nausea. PROBLEM LIST: Problem Description Onset Date Diabetes mellitus without complication 11/15/2009 Noncompliance w/ treatment 11/15/2009 Coronary artery disease of [place] heart with stable angina pectoris 06/26/[address] elevation myocardial infarction (STEMI) of posterior wall 12/30/2015 DM type 2 with diabetic peripheral neuropathy 01/13/2016 Low back pain 11/15/2009 Osteoarthritis 11/15/2009 Hyperlipidemia 11/15/2009 Benign neoplasm of colon 11/15/2009 Benign essential hypertension 11/15/2009 Chronic ischemic heart disease 11/15/2009 Primary osteoarthritis involving multiple joints 04/13/2016 PAST MEDICAL/SURGICAL HISTORY (Detailed) Disease/disorder Onset Date Management Date Comments Arthrocentesis of the left knee joint Arthrocentesis of the right knee joint colonoscopy 07/10/2010 Cholecystectomy heart stint x 2 blocked artery repair Back pain COPD Coronary artery disease Diabetes DJD Esophagitis 07/29/2012 Hiatal hernia 07/29/2012 Hyperlipidemia Hypertension Myocardial infarction 12/10/2015 Osteoarthritis 09/10/2015 shoulder replacement Osteoporosis Polyps, colon Reactive gastropathy 07/29/2012 EGD with biopsy 07/29/2012 DIAGNOSTICS HISTORY: Test Ordered Interpretation Result completed Scan CT 10/04/2002 Normal Abdomen and Pelvis 10/04/2002 CAT scan of abdomen 06/30/2010 Normal Imp: Unremarkable CT of the pelvis. [facility] CAT scan of pelvis 06/30/2010 Normal Imp: Unremarkable CT of the pelvis. [facility] [place] diagnostic colonoscopy 07/10/2010 Normal normal colonoscopy. 07/10/[address] 03/04/2005 Normal Abdomen & Pelvis 03/04/2005 Cardiolyte 08/04/2005 Normal + CAD, EF 49% 08/04/2005 UPPR GI SCOPE DILATE STRICTR 07/26/2012 abnormal Imp: Gastritis, (bx). Hiatal hernia. Esophagitis, (bx). Stenois of the gastroesophageal junction, (dilation) . BX: Reactive gastropathy. Esophageal squamous and cardiac type gastric mucosa within normal limtis. 07/29/2012 EGD 12/31/2014 abnormal Imp: Reflux esphagitis. Hiatal hernia. Schatzki's ring with minimal esophageal narrowing dilated with only 45 yoruba savory dilator. ANtral gastritis. BX: consistent with reactive gastropathy, with focal intestinal metaplasia 01/28/2015 Colonoscopy 07/28/2016 normal 08/10/2016 Mammogram 10/06/2016 01/24/2016 Test Ordered Ordering Comments Modifier Scan CT 10/04/2002 Diagnostic Images CAT scan of abdomen 06/30/2010 CAT scan of pelvis 06/30/2010 diagnostic colonoscopy 07/10/[address] 03/04/2005 Diagnostic Images Cardiolyte 08/04/2005 Cardiac Studies UPPR GI SCOPE DILATE STRICTR 07/26/2012 EGD 12/31/2014 Colonoscopy 07/28/2016 Mammogram 10/06/2016 Patient is postmenopausal. Menopause occurred in 1984. Medications (Active): Started Medication Directions Instruction Stopped 04/17/2015 albuterol sulfate 2.5 mg/3 mL (0.083 %) solution for nebulization use one in nebulizer tid 11/10/2016 AMITRIPTYLINE HCL 10MG TAB TAKE TWO TABLETS DAILY AT BEDTIME 01/21/2017 aspirin 81 mg tablet,delayed release take 1 tablet by oral route every day 12/04/2016 atorvastatin 80 mg tablet TAKE ONE TABLET DAILY 04/19/2017 07/29/2016 BD SWABS SINGLE USE Pad USE DIRECTED 12/14/2016 Cymbalta 60 mg capsule,delayed release take 1 capsule by oral route every day 12/30/2015 Effient 10 mg tablet take 1 tablet by oral route every day 02/11/2017 metoprolol succinate ER 25 mg tablet,extended release 24 hr take 1 tablet by oral route every day 11/20/2016 NITROSTAT 0.4MG TAB 1 TABLET UNDER THE TONGUE NEEDED DIRECTED 04/29/2015 Vostu System Kit Use as directed to test sugars 1 time daily dx: 250.02 07/18/2015 komoot Ultra Test strips USE DIRECTED TO TEST SUGARS 1 TIME DAILY (DX: E11.65) 04/29/2015 komoot UltraSoft Lancets Use as directed to test sugars 1 time daily (DX 250.02) 02/04/2017 oxycodone 10 mg tablet take 1 tablet by oral route every 4 - 6 hours 03/08/2017 ranitidine 150 mg tablet take 1 tablet by ORAL route every day 03/04/2017 Robitussin Long-Acting 1 mg-7.5 mg/5 mL oral liquid take 5 mL three times daily as needed for cough 07/24/2016 Symbicort 80 mcg-4.5 mcg/actuation HFA aerosol inhaler inhale 2 puff by inhalation route 2 times every day in the morning and evening 02/05/2017 Ventolin HFA 90 mcg/actuation aerosol inhaler inhale 2 puff by Inhalation route every 4 - 6 hours as needed Replacing PRO AIR!!!! 03/08/2017 Voltaren 1 % topical gel apply 4 Gram by Topical route 4 times every day Allergies: Ingredient Reaction Medication Name Comment PENICILLINS Hives and knots REVIEW OF SYSTEMS System Neg/Pos Details Constitutional Negative Chills, fever, malaise and weight loss. ENMT Negative Hoarseness and sore throat. Eyes Negative Double vision. Respiratory Negative Dyspnea and wheezing. Cardio Negative Chest pain and irregular heartbeat/palpitations. GI Positive Choking, Food sticking, See HPI. GI Negative Anorexia, bloating, nausea and see HPI. Negative Dysuria and hematuria. Endocrine Negative Cold intolerance and heat intolerance. Psych Negative Anxiety. Integumentary Negative Hives and rash. MS Negative Joint pain. Meek/Lymph Negative Easy bleeding and easy bruising. Allergic/Immuno Negative Animals at home and food allergies. VITAL SIGNS Time BP mm/Hg Pulse /min Resp /min Temp F Ht ft Ht in Ht cm Wt lb Wt kg BMI kg/ m2 BSA m2 O2 Sat% 3:22 PM 122/68 85 97.9 5.0 6.00 167.64 145.00 65.771 23.40 92 Time Measured by 3:22 PM July Cameron PHYSICAL EXAM: Exam Findings Details Constitutional Normal Well developed. Eyes Normal Conjunctiva - Right: Normal, Left: Normal. Sclera - Right: Normal, Left: Normal. Nasopharynx Normal Lips/teeth/gums - Normal. Neck Exam Normal Inspection - Normal. Thyroid gland - Normal. Respiratory Normal Inspection - Normal. Auscultation - Normal. Cardiovascular Normal Regular rate and rhythm. No murmurs, gallops, or rubs. Vascular Normal Pulses - Carotids: Normal, Femoral: Normal, Dorsalis pedis: Normal. Abdomen Normal Inspection - Normal. Anterior palpation - No guarding. No abdominal tenderness. No hepatic enlargement. No splenic enlargement. No hernia. No Ascites. Skin Normal Inspection - Normal. Extremity Normal No edema. Psychiatric Normal Oriented to time, place, person, and situation. Appropriate mood and effect. Assessment/Plan # Detail Type Description 1. Assessment Dysphagia, unspecified type (R13.10). Patient Plan schedule EGD at [facility] Plan Orders Further diagnostic evaluations ordered today include(s) EGD to be performed today. She is to schedule a follow-up visit with Lionel James MD upon completion of work-up Electronically signed by: Lionel James MD 03/16/2017 04:39 PM Document generated by: Lionel James 03/16/2017 04:38 PM Martinez Norman MD, [facility]; Jesus Dean MD Internal Medicine; Junior Brito MD, Internal Medicine; Jean James MD Internal Medicine; Lionel James MD, Gastroenterology; Suresh Sandoval MD, Rheumatology, S. Stefan Elkins, Physical Medicine/Rehab Ej Estevez APRN ------ 03/23/17 Patient seen and examined. No change in H&P. LIONEL JAMES MD Mar 23, 2017 09:26
--- NOTE | 2017-03-23 10:55 | PDOC4 ---
GI OP Report - Dr. Soliman Date/Time DATE: 03/23/17 TIME: 10:49 Attending Physician Yossi Soliman MD Referring Physician Indications Dysphagia Pre-Op See the Anesthesia note for documentation of the administered medications Procedures Upper GI endoscopy Findings - Mild Schatzki ring. - Normal stomach. - Normal examined duodenum. - No specimens collected. Plan - Discharge patient to home. - Patient has a contact number available for emergencies. The signs and symptoms of potential delayed complications were discussed with the patient. Return to normal activities tomorrow. Written discharge instructions were provided to the patient. - Resume regular diet. - Continue present medications. - Return to my office as needed. YOSSI SOLIMAN MD Mar 23, 2017 10:55
[2017-03-23 11:20] VITALS: BP 129/62
== END | disposition home or self-care (01) ==
LOC: ENDOS 08:50
PROVIDERS: ATTEND Internal Medicine Gastroenterology
DX: K22.2 Esophageal obstruction (principal); I25.10 Atherosclerotic heart disease of native coronary artery without angina pectoris; I11.0 Hypertensive heart disease with heart failure; I50.9 Heart failure, unspecified; J44.9 Chronic obstructive pulmonary disease, unspecified; E78.00 Pure hypercholesterolemia, unspecified; M19.90 Unspecified osteoarthritis, unspecified site; J45.909 Unspecified asthma, uncomplicated; E11.9 Type 2 diabetes mellitus without complications; F32.9 Major depressive disorder, single episode, unspecified; Z90.49 Acquired absence of other specified parts of digestive tract; Z96.612 Presence of left artificial shoulder joint; Z86.39 Personal history of other endocrine, nutritional and metabolic disease; Z87.39 Personal history of other diseases of the musculoskeletal system and connective tissue; Z72.89 Other problems related to lifestyle; Z72.0 Tobacco use; Z88.0 Allergy status to penicillin
CPT/HCPCS: 43235; 94640; J2704

== ENCOUNTER → 2017-03-29 | Outpatient (CLI) | payer OTHER ==
[2017-03-23 11:20] VITALS: BP 129/62
[~2017-03-29] MED LIST changes: -ALBUTEROL SULFATE 2.5 MG/3 ML NEBU. NEB ONE; -IV RINGERS,LACTATED 1000ML 1,000 ML IV SCH; -PROPOFOL 20 ML IV ONE
--- NOTE | 2017-03-29 14:49 | RAD ---
DATE: March 29, 2017 EXAM: DIGITAL SCREEN BILAT W/CAD HISTORY: Screening study. COMPARISON: 2014 and 2015 This study was interpreted with the benefit of Computerized Aided Detection (CAD). FINDINGS: The breast parenchyma is primarily fatty replaced. There are no dominant suspicious masses, suspicious microcalcifications or evidence of architectural distortion. IMPRESSION: No mammographic indicators for malignancy. BI-RADS CATEGORY: 1 NEGATIVE RECOMMENDED FOLLOW-UP: 12M 12 MONTH FOLLOW-UP PQRS compliance statement: Patient information was entered into a reminder system with a target due date March 30, 2018 for the next mammogram. Mammography is a sensitive method for finding small breast cancers, but it does not detect them all and is not a substitute for careful clinical examination. A negative mammogram does not negate a clinically suspicious finding and should not result in delay in biopsying a clinically suspicious abnormality. "Our facility is accredited by the [employer] Mammography [employer]." The patient's breast density may affect the ability of mammography to detect breast cancer. There are 4 categories of breast density, A, B, C and D. Breast density A means that most of the breast tissue is replaced with adipose tissue and therefore is not dense. Breast density B means that the breast tissue is mildly dense and scattered. Breast density C means that the breast tissue is heterogeneously dense. Breast density D means that the breast tissue is very dense. Breast densities especially C and D may decrease the sensitivity of mammography to detect breast cancer. Therefore, the patient may benefit from 3-D breast mammography (3D breast tomography) as a part of their screening mammogram. Insurance may or may not pay for this additional imaging. The patient's breast density based on today's mammogram is category A.
== END | disposition home or self-care (01) ==
LOC: MAMMO 12:21
PROVIDERS: ATTEND Family Medicine
DX: Z12.31 Encounter for screening mammogram for malignant neoplasm of breast (principal)
CPT/HCPCS: G0202; 77067